=== PATIENT | female | born 1925 | race Caucasian/White ===

== ENCOUNTER 2016-04-18 09:27 | Emergency (ER) | payer OTHER, MEDICARE ==
[~2016-04-18] VITALS: Ht 162.6 cm; Wt 68.0 kg
--- NOTE | 2016-04-18 10:09 | ED DYSPNEA/ASTHMA COMPLAINT ---
History of Present Illness General Chief Complaint: Upper Respiratory Sx/Fever Stated Complaint: COUGH/ASTHMA Source: patient, family, old records Exam Limitations: no limitations Vital Signs & Intake/Output Vital Signs & Intake/Output Vital Signs Date Time Temp Pulse Resp B/P Pulse O2 O2 Flow FiO2 Ox Delivery Rate 04/18 1335 97.1 88 18 128/70 98 Room Air 04/18 1213 95 04/18 1036 97 04/18 1025 95 Room Air 04/18 0936 96.4 97 18 137/87 95 Room Air Allergies Coded Allergies: NO KNOWN ALLERGIES (04/11/11) Reconcile Medications Albuterol Sulfate 2.5 MG/3 ML (0.083 %) VIAL.NEB 1 Vial INH/ASHLEY Q4P PRN wheezing Amoxicillin 875 MG TABLET 1 TAB PO BID bronchitis Benzonatate (Tessalon Perle) 100 MG CAPSULE 1 CAP PO TID cough [Nebulizer machine] bronchospasm Prednisone 20 MG TABLET 1 TAB PO BID bronchospasm Triage Note: 89 Y/O WAS EVAL'D BY DR FISHER AND PRESCRIBED COUGH MEDICATION BUT HAS BEEN TAKING WITH NO RELIEF; HAS ALSO BEEN TAKING SPIRIVA AND PROAIR (LAST USE PROAIR THIS AM). PT STATES SHE HAS BEEN COUGHING WITH CLEAR PHLEGM. DENIES OTHER COMPLAINTS. DENIES PAIN. SPEAKING CLEARLY WITH NO RESP DISTRESS NOTED. SAT 95%. AFEBRILE. Triage Nurses Notes Reviewed? yes Onset: last month Duration: week(s):, continues in ED, waxing and waning Timing: recent history Severity: moderate Activities at Onset: rest Prior Episodes/Possible Cause: illness exposure Modifying Factors: Improves With: rest. Worsens With: movement. Associated Symptoms: cough, wheezing LMP (ages 10-50): post menopausal : No Patient currently breastfeeds: No HPI: 1 month prior to admission patient has had nonproductive cough nasal congestion episodes of wheezing. The wheezing is become progressive becoming short of breath when coughing. She denies fever chills nausea vomiting diarrhea abdominal pain chest pain headache dysuria rash bleeding. Past History Travel History Traveled to [place] past 21 day No Medical History Any Pertinent Medical History? 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 No Review of Systems Review of Systems Constitutional: Reports: no symptoms. EENTM: Reports: no symptoms. Respiratory: Reports: see HPI, cough, short of breath, wheezing. Cardiovascular: Reports: no symptoms. GI: Reports: no symptoms. Genitourinary: Reports: no symptoms. Musculoskeletal: Reports: no symptoms. Skin: Reports: no symptoms. Neurological/Psychological: Reports: no symptoms. Hematologic/Endocrine: Reports: no symptoms. Immunologic/Allergic: Reports: no symptoms. All Other Systems: Reviewed and Negative Physical Exam Physical Exam General Appearance: well developed/nourished, alert, awake, anxious, moderate distress Head: atraumatic, normal appearance Eyes: Bilateral: normal appearance, PERRL, EOMI. Ears, Nose, Throat: normal pharynx, normal ENT inspection Neck: normal inspection, supple, full range of motion, no midline tenderness Respiratory: chest non-tender, decreased breath sounds, wheezing, respiratory distress Cardiovascular: regular rate/rhythm, normal peripheral pulses, norml femoral pulses equa Peripheral Pulses: 4+ carotid (R), 4+ carotid (L) Gastrointestinal: normal bowel sounds, soft, non-tender, no organomegaly Extremities: normal inspection, normal capillary refill, normal range of motion, no edema, no ligament instability Neurologic/Psych: no motor/sensory deficits, awake, alert, oriented x 3, normal mood/affect, 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 No Severe Sepsis Present: No Septic Shock Present: No Progress Differential Diagnosis: asthma, bronchitis, COPD, pneumonia Plan of Care: Orders Procedure Date/time Status Regular Diet 04/18 L Active Diagnostic Imaging: Viewed by Me: Radiology Read. Discussed w/RAD: Radiology Read. CXR Impression: no acute abnormality Initial ED EKG: none Departure Departure Time of Disposition: 1316 Disposition: HOME OR SELF CARE Condition: Stable Clinical Impression Primary Impression: Asthma with acute exacerbation in adult Secondary Impressions: Bronchitis Referrals: NATALIA DORANTES,KRISTIN Johnson (PCP/Family) Departure Forms: Customer Survey General Discharge Information Prescriptions: Current Visit Scripts Prednisone 1 TAB PO BID #10 TAB Albuterol Sulfate 1 Vial INH/ASHLEY Q4P PRN wheezing #50 Vial Ref 5 Amoxicillin 1 TAB PO BID #20 TAB Benzonatate (Tessalon Perle) 1 CAP PO TID #21 CAP [Nebulizer machine] #1 UNIT Critical Care Note Critical Care Note Critical Care Time: non-applicable
--- NOTE | 2016-04-18 10:40 | RADIOLOGY REPORT ---
EXAMINATION: XR CHEST CLINICAL INFORMATION: Pneumonia. Cough for weeks. COMPARISON: None TECHNIQUE: 2 views of the chest were obtained. FINDINGS: The lung volumes are increased suggestive of underlying COPD. Lungs otherwise clear. There is calcification of the dorsal aorta. The cardiac silhouette is normal. The pulmonary vascularity is normal. Minimal apical pleural thickening compatible with chronic postinflammatory change. Bone and soft tissues: Unremarkable. IMPRESSION: No acute disease. Findings compatible with underlying COPD. Calcific atherosclerotic changes
[2016-04-18] MEDS ORDERED: AMOXICILLIN875 M1 PO (13:20)
[2016-04-18] MEDS ORDERED: ALBUTEROL2.5 MG/3 M INH/SOL (13:20)
[2016-04-18] MEDS ORDERED: TESSALON PERLE100 M1 PO (13:20)
[2016-04-18] MEDS ORDERED: PREDNISONE20 M1 PO (13:20)
[2016-04-18] MEDS ORDERED: Nebulizer machine (13:20)
[2016-04-18 13:35] VITALS: BP 128/70
== END 2016-04-18 13:36 ==
LOC: ERH 09:27
DX: J45.901 Unspecified asthma with (acute) exacerbation (principal); Z87.891 Personal history of nicotine dependence
CPT/HCPCS: 1263

== ENCOUNTER 2016-05-01 20:58 | Inpatient (IN) | payer OTHER, MEDICARE ==
[~2016-05-01] VITALS: Ht 162.6 cm; Wt 56.2 kg
[~2016-05-01 20:58] MED LIST: ALBUTEROL2.5 MG/3 M INH/SOL; AMOXICILLIN875 M1 PO; Nebulizer machine; PREDNISONE20 M1 PO; TESSALON PERLE100 M1 PO
--- NOTE | 2016-05-01 21:06 | NUR ---
RECEIVED 89 YO FEMALE WITH HX OF ASTHMA, C/O DIFFICULTY BREATHING, STARTED THIS AFTERNOON, WORSE WITH COUGHING. EXP WHEEZES AUSCULTATED BILAT. PT WAS HERE 1 1/2 WEEKS AGO FOR SAME. O2 SATS 96%
--- NOTE | 2016-05-01 21:06 | NUR ---
PT REPORTS CHEST HEAVINESS WITH COUGHING
--- NOTE | 2016-05-01 21:11 | NUR ---
PA STUDENT IN TO EVAL PT.
--- NOTE | 2016-05-01 21:20 | ED DYSPNEA/ASTHMA COMPLAINT ---
History of Present Illness General Chief Complaint: Wheezing/Asthma Stated Complaint: ASTHMA, COUGHING, DIFF BREATHING Source: patient, family, old records Exam Limitations: no limitations Vital Signs & Intake/Output Vital Signs & Intake/Output Vital Signs Date Time Temp Pulse Resp B/P Pulse O2 O2 Flow FiO2 Ox Delivery Rate 05/02 022 98.1 84 20 122/74 96 Nasal 2.0L Cannula 05/02 0013 88 107/62 98 Nasal 2.0L Cannula 05/02 0001 98.2 70 20 90/60 95 Nasal 2.0L Cannula 05/01 2243 114 146/91 05/01 2133 96 Nasal 2.0L Cannula 05/02 2103 98.0 99 20 149/91 95 Room Air ED Intake and Output 05/02 0000 05/01 1200 Intake Total 0 Output Total Balance 0 Intake, Oral 0 Patient 144 lb Weight Allergies Coded Allergies: NO KNOWN ALLERGIES (04/11/11) Reconcile Medications Albuterol Sulfate (Proair Hfa) 90 MCG HFA.AER.AD 2 PUF INH Q4-6 PRN PRN ASTHMA (Reported) Albuterol Sulfate 2.5 MG/3 ML (0.083 %) VIAL.NEB 1 Vial INH/ASHLEY Q4P PRN wheezing Alendronate Sodium (Fosamax) 70 MG TABLET 1 TAB PO QW OSTEOPOROSIS (Reported) in the morning, at least 30 minutes before the first food, beverage, or medication of the day Amoxicillin 875 MG TABLET 1 TAB PO BID bronchitis Atorvastatin Calcium (Lipitor) 40 MG TABLET 1 TAB PO DAILY HLD (Reported) Benzonatate (Tessalon Perle) 100 MG CAPSULE 1 CAP PO TID cough Calcium Carbonate/Vitamin D3 (Caltrate 600 + D Tablet) 600 MG-800 TABLET 2 TAB PO DAILY SUPPLEMENT (Reported) Gluc/James-MSM#1/C/Delgado/Alexey/Bor (Osteo Bi-Flex Caplet) 750 MG-644 MG-30 MG-1 MG- 1.5 MG TABLET 2 TAB PO DAILY SUPPLEMENT (Reported) Lisinopril 10 MG TABLET 1 TAB PO DAILY HTN (Reported) Multivit-Min/FA/Lycopen/Lutein (Centrum Silver Tablet) 0.4 MG-300 MCG-250 MCG TABLET 1 TAB PO DAILY SUPPLEMENT (Reported) [Nebulizer machine] bronchospasm Prednisone 20 MG TABLET 1 TAB PO BID bronchospasm Tiotropium [place] (Spiriva) 18 MCG CAP.W.DEV 1 CAP INH DAILY BREATHING ( Reported) Triage Note: RECEIVED 89 YO FEMALE WITH HX OF ASTHMA, C/O DIFFICULTY BREATHING, STARTED THIS AFTERNOON, WORSE WITH COUGHING. EXP WHEEZES AUSCULTATED BILAT. PT WAS HERE 1 1/2 WEEKS AGO FOR SAME. O2 SATS 96% Triage Nurses Notes Reviewed? yes Onset: Abrupt Duration: hour(s): Severity: moderate, severe Activities at Onset: none HPI: 89-year-old female comes into emergency room for further evaluation of chest heaviness and shortness of breath has been going on since about 5 PM tonight. Patient denies any chest pain but reports her chest feels heavy. History of asthma. Patient reports some wheezing. Denies any vomiting. Denies any prior history of cardiac issues. She has a history of hypertension cholesterol and asthma. She sees Dr. Fisher but has never seen a employee health nurse. Denies any other associated symptoms at this time. (HARITHA GLOVER) Past History Travel History Traveled to [place] past 21 day No Medical History Any Pertinent Medical History? 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 No (HARITHA GLOVER) Review of Systems Review of Systems Constitutional: Reports: no symptoms. EENTM: Reports: no symptoms. Respiratory: Reports: see HPI. Cardiovascular: Reports: see HPI. GI: Reports: no symptoms. Genitourinary: Reports: no symptoms. Musculoskeletal: Reports: no symptoms. Skin: Reports: no symptoms. Neurological/Psychological: Reports: no symptoms. Hematologic/Endocrine: Reports: no symptoms. Immunologic/Allergic: Reports: no symptoms. All Other Systems: Reviewed and Negative (HARITHA GLOVER) Physical Exam Physical Exam General Appearance: well developed/nourished, alert, moderate distress Head: atraumatic, normal appearance Eyes: Bilateral: normal appearance. Ears, Nose, Throat: normal ENT inspection, hearing grossly normal Neck: normal inspection Respiratory: decreased breath sounds, wheezing (mild all lung escobar) Cardiovascular: regular rate/rhythm Gastrointestinal: soft Extremities: normal inspection, normal range of motion Neurologic/Psych: awake, alert, oriented x 3, normal gait, normal mood/affect Skin: intact, normal color Core Measures ACS in differential dx? Yes Severe Sepsis Present: No Septic Shock Present: No (DAKOTA VAZQUEZ,HARITHA) Progress Differential Diagnosis: asthma, AMI, bronchitis, costochondritis, CHF, COPD, musculoskeletal pain, pericarditis, pulmonary embolism, pneumonia, pneumothorax, rib fracture, unstable angina, nonstemi, stemi Plan of Care: Orders Procedure Date/time Status Heart Healthy Diet 05/02 B Active TROPONIN LEVEL 05/02 1000 Active EKG 05/02 1000 Active CBC WITHOUT DIFFERENTIAL 05/02 0600 Active BASIC ELECTROLYTES PLUS BUN&CR 05/02 0600 Active TROPONIN LEVEL 05/02 0400 Active EKG 05/02 0400 Active Weight 05/01 2330 Active Pathway - chart 05/01 2325 Active Patient Data 05/01 2325 Active Code Status 05/01 2325 Active Telemetry/Manager Global 05/01 2238 Active Patient Data 05/01 223 Active Add-on Test (ER Only) 05/02 2223 Active Saline Lock 05/01 2217 Active Misc Message 05/01 2217 Active ED Holding Orders 05/01 2217 Active Admit to inpatient 05/01 221 Active Vital Signs 05/01 2217 Active Code Status 05/01 221 Complete PARTIAL THROMBOPLASTIN TIME 05/01 2134 Complete PROTHROMBIN TIME 05/01 2134 Complete LIPID PANEL 05/01 2134 Complete D-DIMER 05/01 2134 Complete Intake & Output 05/01 2121 Active TROPONIN LEVEL 05/01 2108 Complete COMPREHENSIVE METABOLIC PANEL 05/01 2108 Complete CBC WITHOUT DIFFERENTIAL 05/01 2108 Complete EKG 05/01 2106 Active TRC EVALUATION (GEN) 05/01 UNK Active INCENTIVE SPIROMETRY TRX (GEN) 05/01 UNK Active Pathway - chart 05/01 UNK Active House Staff 05/01 UNK Active Lab Add-on Test 05/01 UNK Active VTE Mechanical Prophylaxis 05/01 UNK Active Telemetry/Manager Global 05/01 UNK Active ECHOCARDIOGRAM 05/01 UNK Active Current Medications Sig/Rayna Start time Last Medication Dose Stop Time Status Admin Atorvastatin Calcium 40 MG 1700 05/02 1700 AC (Lipitor) Aspirin 81 MG DAILY 05/02 1000 AC (Aspirin) Clopidogrel Bisulfate 75 MG DAILY 05/02 1000 AC (Plavix) Lisinopril 10 MG DAILY 05/02 1000 AC (Prinivil) Methylprednisolone 40 MG Q12 05/02 1000 AC (Solumedrol) Multivitamins 1 TAB DAILY 05/02 1000 CAN (Theragran Vitamins) Tiotropium [place] 1 PUF DAILY 05/02 1000 AC (Spiriva) Nitroglycerin 0.5 GM Q6 05/02 0600 AC (Nitro-Bid) Acetaminophen 650 MG Q6P PRN 05/01 2330 AC (Tylenol) Laboratory Tests 05/01/165: Anion Gap 9, Estimated GFR 52 L, BUN/Creatinine Ratio 28.0 H, Glucose 97, Calcium 8.9, Total Bilirubin 0.3, AST 28, ALT 47, Alkaline Phosphatase 69, Troponin I 0.32 *H, Total Protein 6.3, Albumin 3.4 L, Globulin 2.9, Albumin/ Globulin Ratio 1.2, Triglycerides 117, Cholesterol 150, LDL Cholesterol, Calc 79 , HDL Cholesterol 48, Cholesterol/HDL Ratio 3, PT 10.6, INR 1.01, APTT 27, D- Dimer 918 H, CBC w Diff NO MAN DIFF REQ, RBC 3.89 L, MCV 89.8, MCH 29.2, RDW 14.6 H, MPV 7.1 L, Gran % 73.3, Lymphocytes % 12.4 L, Monocytes % 9.1, Eosinophils % 3.8, Basophils % 1.4, Absolute Granulocytes 7.7 H, Absolute Lymphocytes 1.3, Absolute Monocytes 1.0 H, Absolute Eosinophils 0.4, Absolute Basophils 0.1, PUBS MCHC 32.5 L Diagnostic Imaging: Viewed by Me: Radiology Read. Discussed w/RAD: Radiology Read. Radiology Impression: SERVICE DATE: 05/01/16 EXAM TYPE: RAD - XRY- PORTABLE CHEST XRAY EXAMINATION: XR PORTABLE CHEST CLINICAL INFORMATION: Dyspnea. COMPARISON: Chest radiograph 04/18/2016. TECHNIQUE: Portable AP view of the chest was obtained. FINDINGS: Lungs are well-expanded. There are ill-defined linear markings within the lung bases that most likely represent a manifestation of subsegmental atelectasis. There is no overt consolidative disease or effusion. No pneumothorax. The cardiac silhouette and upper mediastinal contours are unremarkable. No acute osseous finding. IMPRESSION: There are coarse linear markings within the lung bases that most likely represent a manifestation of subsegmental atelectasis. No overt consolidative disease or effusion. Initial ED EKG: normal intervals, normal p-waves, normal sinus rhythm, rate (91) , slight st depression v4,v5,v6 (HARITHA GLOVER) Departure Departure Disposition: STILL A PATIENT Condition: Stable Clinical Impression Primary Impression: Non-STEMI (non-ST elevated myocardial infarction) Referrals: KRISTIN FISHER MD (PCP/Family) Departure Forms: Customer Survey General Discharge Information Admission Note Spoke With: KRISTIN FISHER MD Documentation of Exam: Documentation of any treatments & extenuating circumstances including Concerns Regarding Discharge (functional status, medication knowledge or non-compliance, living conditions, etc.) that warrant an admission rather than observation: Spoke with Dr. Al from cardiology. IV heparin. Aspirin. Plavix. Nitroglycerin. Beta fredy is wheezing is better. Spoke with Dr. Fisher. Patient be admitted to his service. Dr. Al will consult. Telemetry at this time. (HARITHA GLOVER) PA/SURGICAL ASST Co-Sign Statement Statement: ED Attending supervision documentation- [x] I saw and evaluated the patient. I have also reviewed all the pertinent lab results and diagnostic results. I agree with the findings and the plan of care as documented in the PA's/SURGICAL ASST's documentation.... pt signed out to me. [] I have reviewed the ED Record and agree with the PA's/SURGICAL ASST's documentation. [] Additions or exceptions (if any) to the PAs/SURGICAL ASST's note and plan are summarized below: [] (KATHLEEN DORANTES,NARAYAN Gibbs) Critical Care Note Critical Care Note Critical Care Time: 30-74 min (45 min) (HARITHA GLOVER)
--- NOTE | 2016-05-01 21:22 | NUR ---
TAYLOR MG AT BEDSIDE FOR EVAL.
--- NOTE | 2016-05-01 21:41 | NUR ---
PT MEDICATED WITH 125MG SOLU MEDROL IV. RESP AT BEDSIDE.
[2016-05-01 21:44] LABS: ABSOLUTE BASOPHIL COUNT 0.1 /CUMM (0.0-0.2); ABSOLUTE EOSINOPHIL COUNT 0.4 /CUMM (0.0-0.7); ABSOLUTE GRANULOCYTE CT 7.7 /CUMM (1.4-6.5); ABSOLUTE LYMPH COUNT 1.3 /CUMM (1.2-3.4); BASOPHIL % 1.4 % (0.0-2.0); EOSINOPHIL % 3.8 % (0-5); GRANULOCYTE % 73.3 % (42.2-75.2); HEMATOCRIT 34.9 % (37-47); MEAN CORPUSCULAR HGB 29.2 PG (27.0-31.0); MEAN CORPUSCULAR HGB CONC 32.5 G/DL (33.0-37.0); MEAN CORPUSCULAR VOLUME 89.8 FL (81.0-99.0); MEAN PLATELET VOLUME 7.1 FL (7.4-10.4); PLATELET COUNT 248 /CUMM (130-400); RBC DISTRIBUTION WIDTH 14.6 % (11.5-14.5); RED BLOOD CELL CT 3.89 /CUMM (4.20-5.40); WHITE BLOOD CELL COUNT 10.5 /CUMM (4.8-10.8)
--- NOTE | 2016-05-01 21:57 | NUR ---
PORTABLE XRAY AT BEDSIDE.
--- NOTE | 2016-05-01 22:14 | NUR ---
CRITICAL TEST RESULTS [id number] SABINE POOL 89 F TESTS AND RESULTS: TROPONIN 0.32 Results received and read back by: ADELSO AVILES Results received date and time: 05/01/16 2094 The following provider was notified of the results, and read the results back: TAYLOR DUNCAN Notified date and time: 05/01/16 at 7442
--- NOTE | 2016-05-01 22:28 | NUR ---
PHARMACY CALLED FOR HEPARIN DRIP.
--- NOTE | 2016-05-01 22:37 | NUR ---
PT MEDICATED PER EMAR.
--- NOTE | 2016-05-01 22:47 | History & Physical ---
RAF REYES MD 05/01/16 0009: General Information and HPI MD Statement: I have seen and personally examined SABINE POOL and documented this H&P. The patient is a 89 year old F who presented with a patient stated chief complaint of wheezing. Source of Information: patient, old records Exam Limitations: no limitations History of Present Illness: Ms. Pool is a pleasant 89 year old female with PMH HTN, HLD, asthma, osteoporosis and basal cell carcinoma s/p excision who presents with chief complaint of difficulty breathing. Patient was recently seen in the emergency room at [place] on 04/18/16 for acute asthma exacerbation and discharged with amoxicillin and prednisone, both of which she has completed the course. Patient presents to the emergency room again today due to sudden onset shortness of breath, cough and subsequent chest discomfort that started later this afternoon. Patient was not doing anything specific when she noted she became dyspneic. This dyspnea was worsened by exertion and associated with non-productive cough and wheezing. As the day progressed, she then developed this substernal chest heaviness that gradually increased in intensity until arrival to the ED. The chest pressure did not radiate, did not occur with palpitations, and was not relieved with nitrogylcerin. Associated symptoms include dizziness/ lightheadedness whenever she coughs, non-produtive cough, audible wheezing and chest heaviness. PSH is significant for prior cesarian section and basal cell carcinoma excision. Family history reveals no history of heart disease in Sabine's family. Social history is significant for prior tobacco abuse for 10 years (quit 50 years ago). She denies alcohol or illicit drug use. She drives and performs all of her ADLs/IADLs without assistance. Her PCP is Dr. 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 Bear. Allergies/Medications Allergies: Coded Allergies: NO KNOWN ALLERGIES (04/11/11) Home Med list Albuterol Sulfate (Proair Hfa) 90 MCG HFA.AER.AD 2 PUF INH Q4-6 PRN PRN ASTHMA (Reported) Albuterol Sulfate 2.5 MG/3 ML (0.083 %) VIAL.NEB 1 Vial INH/ASHLEY Q4P PRN wheezing Alendronate Sodium (Fosamax) 70 MG TABLET 1 TAB PO QW OSTEOPOROSIS (Reported) in the morning, at least 30 minutes before the first food, beverage, or medication of the day Amoxicillin 875 MG TABLET 1 TAB PO BID bronchitis Atorvastatin Calcium (Lipitor) 40 MG TABLET 1 TAB PO DAILY HLD (Reported) Benzonatate (Tessalon Perle) 100 MG CAPSULE 1 CAP PO TID cough Calcium Carbonate/Vitamin D3 (Caltrate 600 + D Tablet) 600 MG-800 TABLET 2 TAB PO DAILY SUPPLEMENT (Reported) Gluc/James-MSM#1/C/Delgado/Alexey/Bor (Osteo Bi-Flex Caplet) 750 MG-644 MG-30 MG-1 MG- 1.5 MG TABLET 2 TAB PO DAILY SUPPLEMENT (Reported) Lisinopril 10 MG TABLET 1 TAB PO DAILY HTN (Reported) Multivit-Min/FA/Lycopen/Lutein (Centrum Silver Tablet) 0.4 MG-300 MCG-250 MCG TABLET 1 TAB PO DAILY SUPPLEMENT (Reported) [Nebulizer machine] bronchospasm Prednisone 20 MG TABLET 1 TAB PO BID bronchospasm Tiotropium [place] (Spiriva) 18 MCG CAP.W.DEV 1 CAP INH DAILY BREATHING ( Reported) Compliance With Home Meds: GOOD Past History Travel History Traveled to [place] past 21 day No Medical History Neurological: NONE EENT: NONE Cardiovascular: hypertension, HIGH CHOLESTEROL Respiratory: asthma, pneumonia Gastrointestinal: NONE Hepatic: NONE Renal: NONE Musculoskeletal: NONE Psychiatric: NONE Endocrine: NONE Blood Disorders: NONE Cancer(s): NONE REGRINDER OPERATOR/Reproductive: NONE History of CDIFF: No Tetanus Vaccine: 08/08/11 Surgical History Surgical History: non-contributory Past Family/Social History Psychosocial History Where do you live? Home Who Do You Live With? self Services at Home: None Primary Language: Chinese Smoking Status: Former Smoker ETOH Use: denies use Illicit Drug Use: denies illicit drug use Functional Ability ADLs Independent: dressing, eating, toileting, bathing. Ambulation: independent Sexual History Sexually Active No Review of Systems Review of Systems Constitutional: Denies: chills, fever, malaise, weakness. EENTM: Denies: blurred vision, visual changes, nasal congestion, throat pain. Cardiovascular: Reports: chest pain. Denies: edema, orthopena, palpitations, syncope. Respiratory: Reports: cough, short of breath, wheezing. Denies: sputum production, stridor. GI: Denies: abdominal pain, nausea, vomiting. Genitourinary: Denies: dysuria, hematuria, pain. Musculoskeletal: Denies: back pain, joint pain, neck pain. Skin: Reports: lesions (Basal cell excision on back). Neurological/Psychological: Denies: anxiety, confusion, headache. Hematologic/Endocrine: Denies: bruising, bleeding. Immunologic/Allergic: Denies: splenectomy. All Other Systems: Reviewed and Negative Exam & Diagnostic Data Last 24 Hrs of Vital Signs/I&O Vital Signs Date Time Temp Pulse Resp B/P Pulse O2 O2 Flow FiO2 Ox Delivery Rate 05/01 2242 114 146/91 05/01 2133 96 Nasal 2.0L Cannula 05/02 2103 98.0 99 20 149/91 95 Room Air Physical Exam General Appearance Alert, Oriented X3, Cooperative, No Acute Distress Skin S/P excision of basal cell on midback, excision of mole on anterior chest HEENT Atraumatic, PERRLA, EOMI, Mucous Membr. moist/pink Neck Supple, No JVD, +2 Carotid Pulse wo Bruit Lymphatic Cervical nl Cardiovascular Normal S1, Normal S2, No Murmurs, Tachycardic Lungs Normal Air Movement, Occasional wheeze, no rhales/rhonchi/rubs Abdomen Normal Bowel Sounds, Soft, No Tenderness, No Masses Neurological Normal Speech, Strength at 5/5 X4 Ext, Normal Tone Extremities No Clubbing, No Cyanosis, No Edema, No Tenderness/Swelling Vascular Pulses Symmetrical Last 24 Hrs of Labs/Finn: Laboratory Tests 05/01/162134: Anion Gap 9, Estimated GFR 52 L, BUN/Creatinine Ratio 28.0 H, Glucose 97, Calcium 8.9, Total Bilirubin 0.3, AST 28, ALT 47, Alkaline Phosphatase 69, Troponin I 0.32 *H, Total Protein 6.3, Albumin 3.4 L, Globulin 2.9, Albumin/ Globulin Ratio 1.2, PT 10.6, INR 1.01, APTT 27, D-Dimer Pending, CBC w Diff NO MAN DIFF REQ, RBC 3.89 L, MCV 89.8, MCH 29.2, RDW 14.6 H, MPV 7.1 L, Gran % 73.3, Lymphocytes % 12.4 L, Monocytes % 9.1, Eosinophils % 3.8, Basophils % 1.4 , Absolute Granulocytes 7.7 H, Absolute Lymphocytes 1.3, Absolute Monocytes 1.0 H, Absolute Eosinophils 0.4, Absolute Basophils 0.1, PUBS MCHC 32.5 L Diagnostic Data EKG Results NSR HR 91, QTC 394, T wave inversion V1-V2 CXR Results IMPRESSION: There are coarse linear markings within the lung bases that most likely represent a manifestation of subsegmental atelectasis. No overt consolidative disease or effusion. Assessment/Plan Assessment: Ms. Pool is a pleasant 89 year old female with PMH HTN, HLD, asthma, osteoporosis and basal cell carcinoma s/p excision who presents with chief complaint of difficulty breathing. Patient noted sudden onset shortness of breaht this afternoon, followed by non-productive cough, dizziness with each episode of cough and non-radiating chest heaviness not relieved with nitroglycerin. In the ED: Vital signs showed T 98.0, HR 99, RR 20, BP 149/91 and O2 saturation of 95% on room air that increased to 96% on 2 L NC. Labs were significant for normocytic anemia to 11.4/34.9, Na 133, BUN 28, troponin 0.32, INR 1.01 and DDimer pending. CXR showed coarse linear markings within lung bases likely representing manifestation of subsegmental atelectasis. No overt consolidative disease or effusion. EKG showed NSR HR 91 and QTC 394 with T wave inversion in V1-V2. Patient is admitted to the telemetry floor and the following is the management: 1. Acute asthma exacerbation * Diffuse wheezing appreciated on presentation to ED and patient responded well to 125 IV solumedrol * Unlikely infectious in nature as she is afebrile without leukocytosis and no infiltrate seen on imaging * Prior PFTs on 07/03/11 showed mild obstructive lung disease primarily of the small airways * Continue IV soluemdrol 40 mg Q12 * Spiriva 1 puf daily * Holding beta katelyn for now as it may worsen reactive airway * Incentive spirometer and TRC nebs as needed 2. Elevated troponins * Likely demand ischemia in the setting of asthma exacerbation * OC score is 3 * Patient already received SL nitro, ASA and beta katelyn, currently on IV heparin gtt and oxygen which we will continue * Hold off beta blockers for now given increased SOB possibly 2/2 dose administered in ED * Cardiology evaluation * Trend troponins/EKG at 4 am and 10 am * Nitro 0.5 gm Top Q6 * Plavix 75 mg PO daily * ASA 81 mg PO daily 3. HTN, HLD * Vital signs Q shift * Continue lisinopril 10 mg PO daily * Atorvastatin 40 mg PO daily FULL CODE DVTP: Heparin gtt Heart Healthy Diet Mild pain pathway As Ranked By This Provider Problem List: 1. Asthma 2. Chest heaviness 3. Elevated troponin 4. HTN (hypertension) 5. HLD (hyperlipidemia) 6. Osteoporosis Core Measures/Miscellaneous Acute Coronary Syndrome ACS Diagnosis: Yes KERRY/ARB For EF <40% No No KERRY/ARB d/t NO documentation of EF ASA W/I 24hr of admit Yes Beta-Katelyn W/I 24hrs Yes LDL assessed W/I 24 hrs Yes Currently on Statin Yes Cerebrovascular Accident CVA/TIA Diagnosis: No Congestive Heart Failure CHF Diagnosis: No Venous Thromboembolism VTE Risk Factors: Acute medical illness, Age > 40 No [facility] VTE prophylaxis d/t: No contraindications No VTE Pharm Prophylaxis d/t: No contraindications VTE Diagnosis: No VTE Type: NONE VTE Confirmed by (Test): NONE Severe Sepsis Severe Sepsis Present: No Septic Shock Septic Shock Present: No Miscellaneous Documentation Attending Case Discussed With: KRISTIN FISHER MD Primary Care Physician: KRISTIN FISHER MD Patient sees these Specialists Dr. Bear, dermatology Level of Patient Care: Telemetry CHINO ROBBINS MD 05/02/16 0020: Resident Review Statement Resident Statement: examined this patient, discussed with editing internship, agreed with editing internship Other Findings: 69 Y/O F with a PMH of HTN, HLD, Asthma, Skin Cancer, Osteoporosis who presents to the ED with complaints of increased shortness of breath. Reports that she started to feel short of breath all of a sudden this afternoon. This was associated with some chest pressure, which was new. Does not report any palpitation, dizziness, presyncopal symptoms. She was recently seen in the ED on 04/18 for SOB and was diagnosed with an asthma exacerbation and sent home on Prednisone an Amoxicillin. She recovered completely before today afternoon. She arrived in the ED and was given 125 solumedrol, TRC/Nebs, SL NTG. She reports her breathing became much easier, but her chest pressure did not change. Vitals: Currently on 2.0L saturating 96% Physical Exam: No wheezing heard on exam, no pedal edema, RRR, no M/R/G Labs: Trop 0.32 EKG: No ST-T wave changes Problem List: 1) Elevated Troponins 2/2 NSTEMI vs supply-demand mismatch 2) Asthma Exacerbation 3) Hypertension 4) Hyperlipidemia 5) Osteoporosis 6) H/O Basal Cell Carcinoma Plan: * Admit to telemetry * OC score of 3, putting her at a 14% r/o all cause mortality at 14 days * Trend Troponins and EKG * Aspirin, Plavix, NTG paste, IV Heparin * ECHO * Hold off on beta blockers as the patient could be having increased shortness of breath 2/2 dose administered in the ED * Continue other home medications * DVT PPX: IV heparin * Pain Pathway: Tylenol PRN * Code Status: Full Code KRISTIN FISHER MD 05/02/16 1121: Attending MD Review Statement Attending Statement Attending MD Statement: examined this patient, agreed w/resident/PA/NETSUITE DEVELOPER, discussed with family, reviewed EMR data (avail), reviewed images, amended to note Attending Assessment/Plan: Problems: -NSTEMI -Hypertension -Dyslipidemia -Asthma -Osteoporosis -Allergic rhinitis Plan: -Admit to telemetry -Serial EKG and troponin -ASA -Continue lisinopril and statin -Topical nitrates as tolerated -Metoprolol also if tolerated -TRC consultation nebs -Continue Spiriva -Cardiology consultation
--- NOTE | 2016-05-01 22:48 | RADIOLOGY REPORT ---
EXAMINATION: XR PORTABLE CHEST CLINICAL INFORMATION: Dyspnea. COMPARISON: Chest radiograph 04/18/2016. TECHNIQUE: Portable AP view of the chest was obtained. FINDINGS: Lungs are well-expanded. There are ill-defined linear markings within the lung bases that most likely represent a manifestation of subsegmental atelectasis. There is no overt consolidative disease or effusion. No pneumothorax. The cardiac silhouette and upper mediastinal contours are unremarkable. No acute osseous finding. IMPRESSION: There are coarse linear markings within the lung bases that most likely represent a manifestation of subsegmental atelectasis. No overt consolidative disease or effusion.
[2016-05-01 22:51] LABS: PT 10.6 SEC (9.4-12.5); PTT 27 SEC (25-37)
--- NOTE | 2016-05-01 22:58 | NUR ---
PT BED ASSIGNMENT 180-1
--- NOTE | 2016-05-01 23:29 | NUR ---
HEPARIN DRIP INITIATED.
--- NOTE | 2016-05-01 23:33 | NUR ---
THIS RN CALLED TELEMETRY FOR REPORT. RECEIVING NURSE WILL RETURN CALL IN 5 MINUTES.
[2016-05-01] MEDS ORDERED: LISINOPRIL10 M1 PO (23:39)
[2016-05-01] MEDS ORDERED: LIPITOR40 M1 PO (23:39)
[2016-05-01] MEDS ORDERED: SPIRIVA18 MCG INH (23:40)
[2016-05-01] MEDS ORDERED: CENTRUM FLAVOR PO (23:44)
[2016-05-01] MEDS ORDERED: CALTRATE 600 +1 EACH PO (23:44)
[2016-05-01] MEDS ORDERED: OSTEO BI-FLEX1 EAC2 PO (23:45)
--- NOTE | 2016-05-01 23:46 | NUR ---
REPORT GIVEN TO JUNI TSANG ON TELEMETRY.
[2016-05-01] MEDS ORDERED: CENTRUM SILVER1 EAC3 PO (23:47)
[2016-05-01] MEDS ORDERED: PROAIR HFA8.5 GM INH (23:50)
[2016-05-01] MEDS ORDERED: FOSAMAX70 M1 PO (23:50)
--- NOTE | 2016-05-01 23:52 | NUR ---
BEEPER 033 PAGED.
--- NOTE | 2016-05-02 00:24 | NUR ---
PER RECEIVING NURSE, HOLD OFF ON BRINGING PT UP DUE TO EMERGENCY ON FLOOR.
--- NOTE | 2016-05-02 01:02 | NUR ---
UNABLE TO BRING PT UP TO FLOOR PER CHIEF MARKETING OFFICER.
--- NOTE | 2016-05-02 01:06 | NUR ---
WILL CONTINUE TO MONITOR PT.
--- NOTE | 2016-05-02 01:27 | NUR ---
HOUSESTAFF PAGED REGARDING RESP TREATMENT. AWAITING CALL BACK.
[2016-05-02 05:34] LABS: ABSOLUTE BASOPHIL COUNT 0 /CUMM (0.0-0.2); ABSOLUTE EOSINOPHIL COUNT 0 /CUMM (0.0-0.7); ABSOLUTE GRANULOCYTE CT 9.8 /CUMM (1.4-6.5); ABSOLUTE LYMPH COUNT 0.6 /CUMM (1.2-3.4); ABSOLUTE MONOCYTE COUNT 0.1 /CUMM (0.10-0.60); BASOPHIL % 0 % (0.0-2.0); EOSINOPHIL % 0 % (0-5); GRANULOCYTE % 93.1 % (42.2-75.2); HEMATOCRIT 34.9 % (37-47); MEAN CORPUSCULAR HGB CONC 32.5 G/DL (33.0-37.0); MEAN CORPUSCULAR VOLUME 89.4 FL (81.0-99.0); MEAN PLATELET VOLUME 7.6 FL (7.4-10.4); PLATELET COUNT 248 /CUMM (130-400); RBC DISTRIBUTION WIDTH 14.5 % (11.5-14.5); WHITE BLOOD CELL COUNT 10.5 /CUMM (4.8-10.8)
[2016-05-02 05:43] LABS: PTT 95 SEC (25-37)
[2016-05-02 07:57] VITALS: BP 116/72
--- NOTE | 2016-05-02 08:38 | PN- Housestaff ---
Subjective Follow-up For: NSTEMI Asthma exacerbation Tele-Events Since Last Visit: NSR with HR 69-72 Subjective: Patient seen and examined at bedside. She denies any chest pain/discomfort or dyspnea at the time of interview this morning. Feeling well with no new complaints although she is concerned about the potential damage done to her heart. Denies any f/c, palpitations, abdominal pain, n/v/c/d, dyspepsia or jaw pain, headache, dizziness, lightheadedness. No events reported overnight. Review of Systems Constitutional: Reports: see HPI. Objective Last 24 Hrs of Vital Signs/I&O Vital Signs Date Time Temp Pulse Resp B/P Pulse O2 O2 Flow FiO2 Ox Delivery Rate 05/02 1213 95 Nasal 1.0L Cannula 05/02 1202 Nasal 2.0L Cannula 05/02 1057 97 Nasal 2.0L Cannula 05/02 0954 80 116/72 05/02 0800 97 Nasal 2.0L Cannula 05/02 0757 98.1 80 20 116/72 97 Nasal 2.0L Cannula 05/02 0230 Nasal 2.0L Cannula 05/02 0229 98.1 84 20 122/74 96 Nasal 2.0L Cannula 05/02 0013 88 107/62 98 Nasal 2.0L Cannula 05/02 0001 98.2 70 20 90/60 95 Nasal 2.0L Cannula 05/01 2243 114 146/91 05/01 2134 96 Nasal 2.0L Cannula 05/01 2104 98.0 99 20 149/91 95 Room Air Intake & Output 05/02 1600 05/02 0800 05/02 0000 Intake Total 100 0 Output Total Balance 100 0 Intake, Oral 100 0 Patient 56.245 kg 65.317 kg Weight Physical Exam General Appearance: Alert, Oriented X3, Cooperative, No Acute Distress Other Physical Findings: Skin S/P excision of basal cell on midback, excision of mole on anterior chest HEENT Atraumatic, PERRLA, EOMI, Mucous Membr. moist/pink Neck Supple, No JVD, +2 Carotid Pulse wo Bruit Lymphatic Cervical nl Cardiovascular Normal S1, Normal S2, No Murmurs, Tachycardic Lungs Normal Air Movement, Occasional wheeze, no rhales/rhonchi/rubs Abdomen Normal Bowel Sounds, Soft, No Tenderness, No Masses Neurological Normal Speech, Strength at 5/5 X4 Ext, Normal Tone Extremities No Clubbing, No Cyanosis, No Edema, No Tenderness/Swelling Vascular Pulses Symmetrical Current Medications: Current Medications Sig/Rayna Start time Last Medication Dose Route Stop Time Status Admin Acetaminophen 650 MG Q6P PRN 05/01 2330 AC PO Albuterol Sulfate 3 ML EVERY 4 HRS/AWAKE 05/02 1200 AC 05/02 INH 1054 Albuterol Sulfate 3 ML ONCE ONE 05/02 0700 DC 05/02 INH 05/02 0701 0652 Albuterol Sulfate 3 ML ONCE ONE 05/01 2130 DC 05/01 INH 05/01 2130 213 Aspirin 81 MG DAILY 05/02 1000 DC 05/02 PO 0954 Aspirin 0 .STK-MED ONE 05/01 2232 DC PO Aspirin 325 MG ONCE ONE 05/01 2230 DC 05/01 PO 05/01 2230 223 Aspirin Buffered 325 MG DAILY 05/03 1000 AC PO Aspirin Buffered 243 MG ONCE ONE 05/02 1100 DC PO 05/02 1101 Atorvastatin Calcium 40 MG 1700 05/02 1700 AC PO Clopidogrel Bisulfate 225 MG ONCE ONE 05/02 1100 DC PO 05/02 1101 Clopidogrel Bisulfate 75 MG DAILY 05/02 1000 AC 05/02 PO 0954 Clopidogrel Bisulfate 75 MG ONCE ONE 05/01 2230 DC 05/01 PO 05/01 2230 223 Heparin Sodium 0 .STK-MED ONE 05/01 2232 DC (Porcine) .ROUTE Heparin Sodium 4,000 UNIT ONCE ONE 05/01 2229 DC 05/01 (Porcine) IV 05/01 2230 223 Heparin Sodium 25,000 UNIT Q24H 05/01 2230 AC 05/01 (Porcine) IV 2325 Sodium Chloride 500 ML Ipratropium [place] 2.5 ML ONCE ONE 05/01 2129 DC 05/01 INH 05/01 Lisinopril 10 MG DAILY 05/02 1000 AC 05/02 PO 0954 Magnesium Chloride 64 MG ONCE ONE 05/02 1230 DC PO 05/02 1231 Methylprednisolone 40 MG Q12 05/02 1000 AC 05/02 IV 0954 Methylprednisolone 0 .STK-MED ONE 05/01 2140 DC .ROUTE Methylprednisolone 125 MG ONCE ONE 05/01 2129 DC 05/01 IV 05/01 Metoprolol Tartrate 0 .STK-MED ONE 05/01 2244 DC PO Metoprolol Tartrate 25 MG ONCE ONE 05/01 2229 DC 05/01 PO 05/01 2230 2243 Multivitamins 1 TAB DAILY 05/02 1000 CAN PO Nitroglycerin 0.5 GM Q6 05/02 0600 AC 05/02 TOP 0600 Nitroglycerin 0.4 MG ONCE ONE 05/01 2345 DC 05/01 SL 05/01 2345 2344 Nitroglycerin 0 .STK-MED ONE 05/01 2232 DC Nitroglycerin 0.4 MG ONCE ONE 05/01 2229 DC 05/01 SL 05/01 Tiotropium [place] 1 PUF DAILY 05/02 1000 AC 05/02 INH 0954 Last 24 Hrs of Lab/Finn Results Last 24 Hrs of Labs/Mics: Laboratory Tests 05/02/16 1205: Troponin I Pending, APTT Pending 05/02/16 1150: pH 7.43, pCO2 29 L, pO2 74 L, HCO3 19 L, ABG O2 Sat (Measured) 95.0 L, P-50 (Temp Corrected) N, Carboxyhemoglobin 0.3 L, O2 Concentration % .21, Temperature 98.1, O2 Delivery Method RA, Phlebotomy Draw Site RIGHT RADIAL 05/02/16 0440: Troponin I 2.59 *H 05/02/16 044: Anion Gap 11, Estimated GFR 52 L, BUN/Creatinine Ratio 26.0 H, Magnesium 1.8, TSH 0.189 L, Free T4 1.40, APTT 95 H, CBC w Diff NO MAN DIFF REQ, RBC 3.90 L, MCV 89.4, MCH 29.0, RDW 14.5, MPV 7.6, Gran % 93.1 H, Lymphocytes % 6.1 L, Monocytes % 0.8 L, Eosinophils % 0, Basophils % 0 L, Absolute Granulocytes 9.8 H, Absolute Lymphocytes 0.6 L, Absolute Monocytes 0.1 L, Absolute Eosinophils 0, Absolute Basophils 0, PUBS MCHC 32.5 L 05/01/162134: Anion Gap 9, Estimated GFR 52 L, BUN/Creatinine Ratio 28.0 H, Glucose 97, Calcium 8.9, Total Bilirubin 0.3, AST 28, ALT 47, Alkaline Phosphatase 69, Troponin I 0.32 *H, Total Protein 6.3, Albumin 3.4 L, Globulin 2.9, Albumin/ Globulin Ratio 1.2, Triglycerides 117, Cholesterol 150, LDL Cholesterol, Calc 79 , HDL Cholesterol 48, Cholesterol/HDL Ratio 3, PT 10.6, INR 1.01, APTT 27, D- Dimer 918 H, CBC w Diff NO MAN DIFF REQ, RBC 3.89 L, MCV 89.8, MCH 29.2, RDW 14.6 H, MPV 7.1 L, Gran % 73.3, Lymphocytes % 12.4 L, Monocytes % 9.1, Eosinophils % 3.8, Basophils % 1.4, Absolute Granulocytes 7.7 H, Absolute Lymphocytes 1.3, Absolute Monocytes 1.0 H, Absolute Eosinophils 0.4, Absolute Basophils 0.1, PUBS MCHC 32.5 L Assessment/Plan Assessment: Ms. Puente is a pleasant 89 year old female with PMH HTN, HLD, asthma, osteoporosis and basal cell carcinoma s/p excision who presents with chief complaint of difficulty breathing. Patient noted sudden onset shortness of breaht this afternoon, followed by non-productive cough, dizziness with each episode of cough and non-radiating chest heaviness not relieved with nitroglycerin. 1. Acute asthma exacerbation Diffuse wheezing appreciated on presentation to ED and patient responded well to 125 IV solumedrol. Unlikely infectious in nature as she is afebrile without leukocytosis and no infiltrate seen on imaging. Prior PFTs on 07/03/11 showed mild obstructive lung disease primarily of the small airways. Currently satting well on 1L oxgyen via NC. * Continue IV soluemdrol 40 mg Q12 * Spiriva 1 puf daily * Holding beta fredy for now as it may worsen reactive airway * Incentive spirometer and TRC nebs as needed * Oxygen support to maintain O2 sat > 92% * Check TFTs 2. NSTEMI Chest discomfort and dyspnea are most likely 2/2 NSTEMI consistent with the elevated troponin. However, PE should be included in the ddx and excluded with appropriate workup. OC risk score is 4 pts, equivalent to 20% risk all cause mortality. * Serial troponins and EKGs: 0.32 -> 2.59 -> pending * Cont heparin drip, Plavix 75mg daily, Nitro top 1 gm Q6 * Start Aspirin 325mg daily * Follow TTE * Follow up cardiology consult * Oxygen support * Hold off beta blockers for now given increased SOB possibly 2/2 dose administered in ED 3. HTN, HLD * Vital per protocol * Continue lisinopril 10 mg PO daily * Cont atorvastatin 40 mg PO daily # Heart healthy # Mild pain pathway # DVTP: Heparin gtt # Full code Problem List: 1. Asthma with acute exacerbation in adult 2. Bronchitis 3. Asthma 4. Chest heaviness 5. Elevated troponin 6. HTN (hypertension) 7. HLD (hyperlipidemia) 8. Osteoporosis 9. Non-STEMI (non-ST elevated myocardial infarction) Pain Ratin Pain Location: 0 Pain Goal: Remain pain free Pain Plan: Mild pain pathway NGT Tomorrow's Labs & Rationales: BEP
--- NOTE | 2016-05-02 08:49 | Cons- Cardiology ---
General Information and HPI Consulting Request Date of Consult: 05/02/16 Requested By: NATALIA DORANTES,KRISTIN Johnson History of Present Illness: Ms. Puente is an 89 year old female with history of hypertension, dyslipidemia and asthma who presented to the ER for evaluation of both shortness of breath and chest discomfort. It should be noted that this patient is a poor historian with decreased memory. She reports intermittent chest heaviness without radiation for about a week. She also reports a nonproductive cough and shortness of breath with wheezing. The patient does feel a bit lightheaded when she coughs but denies palpitations. No nausea, vomiting or diaphoresis. She now feels improved although her cardiac enzymes are positive for a NSTEMI. It should be noted that this patient was recently in the ER for an acute asthma exacerbation that was treated with steroids and antibiotics. Allergies/Medications Allergies: Coded Allergies: NO KNOWN ALLERGIES (04/11/11) Home Med List: Albuterol Sulfate (Proair Hfa) 90 MCG HFA.AER.AD 2 PUF INH Q4-6 PRN PRN ASTHMA (Reported) Albuterol Sulfate 2.5 MG/3 ML (0.083 %) VIAL.NEB 1 Vial INH/ASHLEY Q4P PRN wheezing Alendronate Sodium (Fosamax) 70 MG TABLET 1 TAB PO QW OSTEOPOROSIS (Reported) in the morning, at least 30 minutes before the first food, beverage, or medication of the day Amoxicillin 875 MG TABLET 1 TAB PO BID bronchitis Atorvastatin Calcium (Lipitor) 40 MG TABLET 1 TAB PO DAILY HLD (Reported) Benzonatate (Tessalon Perle) 100 MG CAPSULE 1 CAP PO TID cough Calcium Carbonate/Vitamin D3 (Caltrate 600 + D Tablet) 600 MG-800 TABLET 2 TAB PO DAILY SUPPLEMENT (Reported) Gluc/James-MSM#1/C/Delgado/Alexey/Bor (Osteo Bi-Flex Caplet) 750 MG-644 MG-30 MG-1 MG- 1.5 MG TABLET 2 TAB PO DAILY SUPPLEMENT (Reported) Lisinopril 10 MG TABLET 1 TAB PO DAILY HTN (Reported) Multivit-Min/FA/Lycopen/Lutein (Centrum Silver Tablet) 0.4 MG-300 MCG-250 MCG TABLET 1 TAB PO DAILY SUPPLEMENT (Reported) [Nebulizer machine] bronchospasm Prednisone 20 MG TABLET 1 TAB PO BID bronchospasm Tiotropium [place] (Spiriva) 18 MCG CAP.W.DEV 1 CAP INH DAILY BREATHING ( Reported) Review of Systems Review of Systems: cough Past History Travel History Traveled to [place] past 21 day No Medical History Neurological: NONE EENT: NONE Cardiovascular: hypertension, HIGH CHOLESTEROL Respiratory: asthma, pneumonia Gastrointestinal: NONE Hepatic: NONE Renal: NONE Musculoskeletal: NONE Psychiatric: NONE Endocrine: NONE Blood Disorders: NONE Cancer(s): basal cell carcinoma (s/p resection) 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 Home Who Do You Live With? self Services at Home: None Primary Language: Bhutanese Smoking Status: Former Smoker (quit 50 yrs ago) ETOH Use: denies use Illicit Drug Use: denies illicit drug use Functional Ability ADLs Independent: dressing, eating, toileting, bathing. Ambulation: independent Exam & Diagnostic Data Vital Signs and I&O Vital Signs Date Time Temp Pulse Resp B/P Pulse O2 O2 Flow FiO2 Ox Delivery Rate 05/02 0757 98.1 80 20 116/72 97 Nasal 2.0L Cannula 05/02 0230 Nasal 2.0L Cannula 05/02 0229 98.1 84 20 122/74 96 Nasal 2.0L Cannula 05/02 0013 88 107/62 98 Nasal 2.0L Cannula 05/02 0001 98.2 70 20 90/60 95 Nasal 2.0L Cannula 05/01 2243 114 146/91 05/014 96 Nasal 2.0L Cannula 05/014 98.0 99 20 149/91 95 Room Air Intake & Output 05/02 1600 05/02 0800 05/02 0000 05/01 1600 05/01 0800 05/01 0000 Intake Total 0 Output Total Balance 0 Intake, Oral 0 Patient 124 lb 144 lb Weight Physical Exam: General: WD/ WN female in NAD; alert and oriented with decreased memory HEENT: NC/ AT, PERRL, EOMI Neck: no JVD, no carotid bruit Heart: RRR with 2/6 systolic murmur Lungs: clear bilaterally Abdomen: soft, NT, +ve bowel sounds Extremities: no edema Diagnostic Data EKG Results sinus rhythm Assessment/Plan Assessment/Plan * This patient has noted recurrent episodes of chest heaviness along with shortness of breath that she has been attributing to a cough. She is also noted to have an elevated D-dimer. As such a PE is in the differential. Her symptoms and rise in cardiac enzymes are more consistent with myocardial ischemia and NSTEMI however. It is reasonable to try medical therapy considering her age and comorbidities. I would have a low threshold for cardiac catheterization, however , if this patient continues to have symtoms with rising enzymes. * Obtain an ABG on RA and lower extremity dopplers. If abnormal then a CT angiogram to assess for a PE is recommended. * Follow cardiac enzymes until they peak and obtain an echocardiogram. * check a TSH and free T4. * Begin IV heparin, aspirin 235mg daily and Plavix 75mg after a 300mg loading dose. * Begin NTG paste 1/2 inche Q6 hours, Atorvastatin 40mg daily and O2 2L by NC. * Hold Metoprolol due to recent wheezing. Consult Acknowledgment - Thank you for your consult request.
--- NOTE | 2016-05-02 10:08 | NUR ---
PATIENT WAS BLADDER SCANNED BEFORE BREAKFAST AND AVERAGE URINE WAS > 500CC. PATIENT THEN VOIDED 700CC AFTER BREAKFAST. RESIDUAL URINE ON BLADDER SCAN WAS BETWEEN 250-300CC. REPORTED TO DR. CULP.
--- NOTE | 2016-05-02 11:21 | Admission Certification ---
Admission Certification Certification Statement - As attending physician, I certify that at the time of - admission, based on clinical presentation, severity of - symptoms, need for further diagnostic testing and - therapeutic interventions, and risk of adverse outcomes - without in-hospital treatment, in my clinical assessment, - this patient requires an acute hospital stay for a minimum - of two nights or longer. I have also considered psychsocial - factors such as support system, advanced age, financial - issues, cognitive issues, and failed out-patient treatments, - past re-admission history, safety of patient, and lack of - compliance as applicable. Specific rationale supporting this admission is: Evaluation and treatment of an NSTEMI
--- NOTE | 2016-05-02 11:35 | PN- Att Addend ---
Attending Addendum Attending Brief Note Mrs. Puente was interviewed and examined. Her EMR was reviewed. She is comfortable and denies chest pain, shortness of breath, and wheezing. She is afebrile with stable vital signs. Pulmonary exam is benign. Cardiovascular exam reveals a regular rate and rhythm and is without murmurs or gallops. Abdominal exam is benign. Her extremities have good pedal pulses and are without edema. CBC in BMP are acceptable. Her troponin has risen to 2.59 a third evaluation pending. CTA and echocardiogram are pending. As suggested by Dr. Al we should continue to monitor her troponin and obtained an echo. I also agree that medical management is appropriate unless she continues to be symptomatic. At this time I feel it is safe to add metoprolol 12.5 mg twice a day. We should continue her KERRY, statin, and her pulmonary meds. She is tolerating topical nitrates which should be continued and we should also continue her antiplatelet regimen with clopidogrel and ASA.
[2016-05-02 13:05] LABS: PTT 75 SEC (25-37)
--- NOTE | 2016-05-02 15:00 | CT SCAN REPORT ---
EXAMINATION: CT ANGIOGRAM CHEST WITH AND WITHOUT CONTRAST (FOR PULMONARY EMBOLISM) CLINICAL INFORMATION: Shortness of breath, chest pain, abnormal ABG. COMPARISON: Chest radiograph done on 05/01/2016. TECHNIQUE: Prior to contrast administration, noncontrast localization images were obtained. Subsequently, multidetector volumetric imaging was performed from the thoracic inlet to below the diaphragms following the administration of 64 mL Optiray 320 intravenous contrast. No contrast reaction reported. Sagittal, coronal, and MIP oblique sagittal reformatted images were obtained on the CT workstation, uploaded to PACS, and reviewed. DLP: 390.83 mGy-cm. FINDINGS: QUALITY OF STUDY/CONTRAST BOLUS: Satisfactory. PULMONARY ARTERIES: No central or segmental pulmonary emboli. THORACIC AORTA: Diffuse atherosclerotic changes are noted within the aorta and its branches including coronary artery calcifications. There is no evidence of any dissection or aneurysm formation identified. LUNG: Pleural parenchymal scar related changes are noted at both lung apices. Mild emphysematous changes are noted throughout both lung escobar with slight pleural parenchymal scar at medial segment of the right middle lobe and lingular segment of the left upper lobe. The tracheobronchial tree appears patent. PLEURA: No pleural effusion or pneumothorax. MEDIASTINUM: Normal heart size. No pericardial effusion. No hilar or mediastinal lymphadenopathy. No evidence of septal bowing or right heart strain. CHEST WALL/AXILLA: No axillary or internal mammary lymphadenopathy. ADDITIONAL FINDINGS: The thyroid gland appears abnormal with evidence of multiple hypodense nodules, the largest seen within the left lobe, measures approximately 1.4 cm at its maximum dimension. Note is also made of inferior intrathyroidal extension into the anterior superior mediastinum with multiple calcified nodules. Followup thyroid ultrasound may be considered for further full-detail evaluation, if clinically appropriate. UPPER ABDOMEN: 3 cm cyst is noted at the superior lateral cortex of the visualized part of the superior pole of the left kidney. No reflux of contrast into the hepatic veins to suggest elevated right heart pressures. OSSEOUS STRUCTURES: No acute or suspicious osseous abnormality. IMPRESSION: 1. No CT evidence of pulmonary embolism. 2. Mild emphysematous changes are noted throughout both lung escobar with evidence of superimposed pleural parenchymal likely scar at both lung apices, medial segment of the right middle lobe and lingular segment of the left upper lobe. 3. Abnormal thyroid gland showing evidence of superior mediastinal extension and superimposed multiple calcified as well as noncalcified nodules seen bilaterally. Followup thyroid ultrasound may be considered for further full-detail evaluation, if clinically appropriate.
--- NOTE | 2016-05-02 16:07 | ULTRASOUND REPORT ---
EXAMINATION: US TRIPLEX LOWER EXTREMITY, BILATERAL CLINICAL INFORMATION: Shortness of breath with elevated d-dimer and leg tenderness COMPARISON: None TECHNIQUE: Color-flow triplex imaging with spectral analysis and compression Doppler were performed on the bilateral lower extremities. FINDINGS: Respiratory variation, normal compression and augmented flow are noted throughout the bilateral lower extremities. The visualized common femoral vein, superficial femoral vein, profunda femoral vein, popliteal vein and midcalf peroneal and posterior tibial venous segments show no evidence of deep venous thrombosis. There is no Venegas's cyst. IMPRESSION: Normal triplex scan without evidence of deep venous thrombosis involving the bilateral lower extremities.
[2016-05-02 16:31] VITALS: BP 128/72
[2016-05-02 23:54] VITALS: BP 112/80
[2016-05-03 01:02] LABS: PTT 64 SEC (25-37)
--- NOTE | 2016-05-03 06:30 | PN- Housestaff ---
See Addendum Subjective Follow-up For: NSTEMI Asthma exacerbation Tele-Events Since Last Visit: NSR Subjective: Patient seen and examined at bedside. Offers no complaints this morning. She reports feeling perfectly fine without any chest pain/discomfort or dyspnea. Denies any f/c, palpitations, abdominal pain, n/v/c/d, dyspepsia or jaw pain, headache, dizziness, lightheadedness. No events reported overnight. Review of Systems Constitutional: Reports: see HPI. Objective Last 24 Hrs of Vital Signs/I&O Vital Signs Date Time Temp Pulse Resp B/P Pulse O2 O2 Flow FiO2 Ox Delivery Rate 05/03 0855 120/62 05/03 0815 98.1 84 20 120/62 96 Nasal 1.0L Cannula 05/03 0804 96 Nasal 1.0L Cannula 05/03 0800 95 Nasal 1.0L Cannula 05/03 0000 Nasal 1.0L Cannula 05/02 2354 97.4 78 20 112/80 97 Nasal Cannula 05/02 1820 98 Nasal 2.0L Cannula 05/02 1631 97.3 79 20 128/72 98 Room Air 05/02 1600 96 Nasal 2.0L Cannula 05/02 1213 95 Nasal 1.0L Cannula 05/02 1202 Nasal 2.0L Cannula Intake & Output 05/03 1600 05/03 0800 05/03 0000 Intake Total 168 355 Output Total Balance 168 355 Intake, IV 118 115 Intake, Oral 50 240 Physical Exam General Appearance: Alert, Oriented X3, Cooperative, No Acute Distress Other Physical Findings: Skin S/P excision of basal cell on midback, excision of mole on anterior chest HEENT Atraumatic, PERRLA, EOMI, Mucous Membr. moist/pink Neck Supple, No JVD, +2 Carotid Pulse wo Bruit Lymphatic Cervical nl Cardiovascular Normal S1, Normal S2, No Murmurs, Tachycardic Lungs Normal Air Movement, Occasional wheeze, no rhales/rhonchi/rubs Abdomen Normal Bowel Sounds, Soft, No Tenderness, No Masses Neurological Normal Speech, Strength at 5/5 X4 Ext, Normal Tone Extremities No Clubbing, No Cyanosis, No Edema, No Tenderness/Swelling Vascular Pulses Symmetrical Current Medications: Current Medications Sig/Rayna Start time Last Medication Dose Route Stop Time Status Admin Acetaminophen 650 MG Q6P PRN 05/01 2330 AC PO Albuterol Sulfate 3 ML EVERY 4 HRS/AWAKE 05/02 1200 AC 05/03 INH 0801 Aspirin Buffered 325 MG DAILY 05/03 1000 AC 05/03 PO 0856 Atorvastatin Calcium 40 MG 1700 05/02 1700 AC 05/02 PO 1618 Clopidogrel Bisulfate 75 MG DAILY 05/02 1000 AC 05/03 PO 0856 Heparin Sodium 25,000 UNIT Q24H 05/01 2230 AC 05/02 (Porcine) IV 2038 Sodium Chloride 500 ML Lisinopril 10 MG DAILY 05/02 1000 AC 05/03 PO 0855 Magnesium Chloride 64 MG ONCE ONE 05/02 1230 DC 05/02 PO 05/02 1231 1618 Methylprednisolone 40 MG Q12 05/02 1000 AC 05/03 IV 0855 Nitroglycerin 0.5 GM Q6 05/02 0600 AC 05/03 TOP 0533 Patient Medication 1 ED .STK-MED ONE 05/03 1133 DC Teaching ED 05/03 1134 Tiotropium [place] 1 PUF DAILY 05/02 1000 AC 05/03 INH 0856 Last 24 Hrs of Lab/Finn Results Last 24 Hrs of Labs/Mics: Laboratory Tests 05/03/16 0635: Troponin I Cancelled 05/03/16 0635: Anion Gap 7, Estimated GFR 59 L, BUN/Creatinine Ratio 33.3 H, Magnesium 2.3, Troponin I 3.07 *H, CBC w Diff NO MAN DIFF REQ, RBC 3.48 L, MCV 89.7, MCH 29.6, RDW 14.3, MPV 7.8, Gran % 90.0 H, Lymphocytes % 6.2 L, Monocytes % 3.8, Eosinophils % 0, Basophils % 0 L, Absolute Granulocytes 9.7 H, Absolute Lymphocytes 0.7 L, Absolute Monocytes 0.4, Absolute Eosinophils 0, Absolute Basophils 0, PUBS MCHC 33.0 05/03/16 0035: Troponin I 3.58 *H, APTT 64 H 05/02/16 1825: Troponin I 3.65 *H 05/02/16 1205: Troponin I 2.48 *H, APTT 75 H 05/02/16 1150: pH 7.43, pCO2 29 L, pO2 74 L, HCO3 19 L, ABG O2 Sat (Measured) 95.0 L, P-50 (Temp Corrected) N, Carboxyhemoglobin 0.3 L, O2 Concentration % .21, Temperature 98.1, O2 Delivery Method RA, Phlebotomy Draw Site RIGHT RADIAL Assessment/Plan Assessment: Ms. Puente is a pleasant 89 year old female with PMH HTN, HLD, asthma, osteoporosis and basal cell carcinoma s/p excision who presents with chief complaint of difficulty breathing. Patient noted sudden onset shortness of breaht this afternoon, followed by non-productive cough, dizziness with each episode of cough and non-radiating chest heaviness not relieved with nitroglycerin. 1. Acute asthma exacerbation Diffuse wheezing appreciated on presentation to ED and patient responded well to 125 IV solumedrol. Unlikely infectious in nature as she is afebrile without leukocytosis and no infiltrate seen on imaging. Prior PFTs on 07/03/11 showed mild obstructive lung disease primarily of the small airways. Currently satting well on 1L oxgyen via NC. * Continue IV soluemdrol 40 mg Q12 * Spiriva 1 puf daily * Resume beta fredy if okay with cardio * Incentive spirometer and TRC nebs as needed * Oxygen support to maintain O2 sat > 92% * Check TFTs - TSH 0.189, T4 normal 2. NSTEMI Chest discomfort and dyspnea are most likely 2/2 NSTEMI consistent with the elevated troponin. However, PE should be included in the ddx and excluded with appropriate workup. OC risk score is 4 pts, equivalent to 20% risk all cause mortality. * Serial troponins and EKGs: 0.32 -> 2.59 -> 2.48 -> 3.65 -> 3.58 -> 3.07 * Cont heparin drip, Plavix 75mg daily, Nitro top 1 gm Q6 * Cont Aspirin 325mg daily * Follow TTE * Appreciate cardio recs * Oxygen support * Hold off beta blockers for now given increased SOB possibly 2/2 dose administered in ED 3. HTN, HLD * Vital per protocol * Continue lisinopril 10 mg PO daily * Cont atorvastatin 40 mg PO daily # Heart healthy # Mild pain pathway # DVTP: Heparin gtt # Full code Problem List: 1. Asthma with acute exacerbation in adult 2. Bronchitis 3. Asthma 4. Chest heaviness 5. Elevated troponin 6. HTN (hypertension) 7. HLD (hyperlipidemia) 8. Osteoporosis 9. Non-STEMI (non-ST elevated myocardial infarction) Pain Ratin Pain Location: 0 Pain Goal: Remain pain free Pain Plan: Mild pathway Tomorrow's Labs & Rationales: CBC BEP
[2016-05-03 08:07] LABS: ABSOLUTE BASOPHIL COUNT 0 /CUMM (0.0-0.2); ABSOLUTE EOSINOPHIL COUNT 0 /CUMM (0.0-0.7); ABSOLUTE GRANULOCYTE CT 9.7 /CUMM (1.4-6.5); ABSOLUTE LYMPH COUNT 0.7 /CUMM (1.2-3.4); ABSOLUTE MONOCYTE COUNT 0.4 /CUMM (0.10-0.60); BASOPHIL % 0 % (0.0-2.0); EOSINOPHIL % 0 % (0-5); HEMATOCRIT 31.2 % (37-47); MEAN CORPUSCULAR HGB 29.6 PG (27.0-31.0); MEAN CORPUSCULAR VOLUME 89.7 FL (81.0-99.0); MEAN PLATELET VOLUME 7.8 FL (7.4-10.4); PLATELET COUNT 242 /CUMM (130-400); RBC DISTRIBUTION WIDTH 14.3 % (11.5-14.5); RED BLOOD CELL CT 3.48 /CUMM (4.20-5.40)
[2016-05-03 08:15] VITALS: BP 120/62
[2016-05-03 09:22] LABS: WHITE BLOOD CELL COUNT 10.8 /CUMM (4.8-10.8)
[2016-05-03 14:24] LABS: PTT 51 SEC (25-37)
[2016-05-03 16:07] VITALS: BP 114/64
--- NOTE | 2016-05-03 18:35 | ECHOCARDIOGRAM REPORT ---
SABINE POOL Age: 89 : 1925 Gender: F Exam Date: 05/02/2016 18:59 Exam Location: [address] Ht (in): 64 Wt (lb): 123 BSA: 1.59 BP: 116 / 72 Ordering Physician: CHINO ROBBINS MD Referring Physician: Steve Al MD, PhD Technologist: Suzi Mendoza [facility] Room Number: [id number] Indications: CHEST PAIN Rhythm: Sinus Technical Quality: technically limited FINDINGS Left Ventricle Normal left ventricular size, wall thickness and systolic function with moderate posterior wall hypokinesis. Diastolic filling pattern is consistent with impaired LV relaxation. The ejection fraction is visually estimated at 70%. Right Ventricle The right ventricle is normal in size and function. Right Atrium The right atrium is normal in size. Left Atrium The left atrium is normal in size. The interatrial septum is intact. Mitral Valve The mitral valve is normal in structure and function. There is no mitral regurgitation. Aortic Valve Structurally normal aortic valve without significant sclerosis or stenosis. There is no aortic regurgitation. Tricuspid Valve The tricuspid valve is normal in structure and function. There is trace tricuspid regurgitation. Pulmonary artery systolic pressure is normal. Pulmonic Valve Structurally normal pulmonic valve. There is no pulmonic regurgitation. Pericardium Normal pericardium without effusion. No pleural effusion. Great Vessels Normal aortic root dimension. The aortic arch and great vessels are well seen and are normal. CONCLUSIONS 1. Normal EF of 70% with moderate posterior wall hypokinesis and impaired LV relaxation. 2. Trace tricuspid regurgitation. Steve Al M.D. (Electronically Signed) Final Date: 03 May 2016 18:34 MEASUREMENTS (Male / Female) Normal Values 2D ECHO LV Diastolic Diameter PLAX 4.5 cm 4.2 - 5.9 / 3.9 - 5.3 cm LV Systolic Diameter PLAX 2.5 cm 2.1 - 4.0 cm LV Fractional Shortening PLAX 44.4 % 25 - 46 % LV Ejection Fraction 2D Teich 75.9 % IVS Diastolic Thickness 0.7 cm LVPW Diastolic Thickness 0.9 cm LV Relative Wall Thickness 0.4 RV Internal Dim ED PLAX 2.7 cm 1.9 - 3.8 cm LVOT Diameter 1.9 cm Aortic Root Diameter 2.8 cm LA Systolic Diameter LX 3.0 cm 3.0 - 4.0 / 2.7 - 3.8 cm LA Volume 21.0 cm 18 - 58 / 22 - 52 cm Ascending Aorta Diameter 3.1 cm DOPPLER AV Peak Velocity 132.0 cm/s AV Peak Gradient 7.0 mmHg AV Mean Velocity 91.7 cm/s AV Mean Gradient 4.0 mmHg AV Velocity Time Integral 27.1 cm LVOT Peak Velocity 116.0 cm/s LVOT Peak Gradient 5.4 mmHg LVOT Mean Velocity 73.1 cm/s LVOT Mean Gradient 3.0 mmHg LVOT Velocity Time Integral 24.7 cm LVOT Stroke Volume 70.0 cm AV Area Cont Eq vti 2.6 cm AV Area Cont Eq pk 2.5 cm MV Peak Velocity 116.0 cm/s MV Peak Gradient 5.4 mmHg MV Mean Velocity 69.2 cm/s MV Mean Gradient 2.0 mmHg Mitral E Point Velocity 59.2 cm/s Mitral A Point Velocity 86.9 cm/s Mitral E to A Ratio 0.7 MV PHT Velocity 109.0 cm/s MV Deceleration [place] 483.0 cm/s MV Pressure Half Time 67.7 ms MV Area PHT 3.2 cm MV Deceleration Time 359.0 ms TR Peak Velocity 246.0 cm/s TR Peak Gradient 24.2 mmHg Right Atrial Pressure 5.0 mmHg Pulmonary Artery Systolic Pressu 29.2 mmHg Right Ventricular Systolic Press 29.2 mmHg PV Peak Velocity 88.8 cm/s PV Peak Gradient 3.2 mmHg PV Mean Velocity 58.5 cm/s PV Mean Gradient 2.0 mmHg PV Velocity Time Integral 16.6 cm LV E' Lateral Velocity 8.8 cm/s Mitral E to LV E' Lateral Ratio 6.8 LV E' Septal Velocity 8.0 cm/s Mitral E to LV E' Septal Ratio 7.4
--- NOTE | 2016-05-03 19:51 | PN- Cardiology ---
Subjective Subjective: * No chest discomfort, shortness of breath, lightheadedness or palpitations. * cardiac enzymes are trending down * No evidence for PE Objective Vital Signs and I&Os Vital Signs Date Time Temp Pulse Resp B/P Pulse O2 O2 Flow FiO2 Ox Delivery Rate 05/03 1607 98.0 90 20 114/64 95 Room Air 05/03 1600 95 Room Air Room Air 05/03 1600 95 Room Air 05/03 0855 120/62 05/03 0815 98.1 84 20 120/62 96 Nasal 1.0L Cannula 05/03 0804 96 Nasal 1.0L Cannula 05/03 0800 95 Nasal 1.0L Cannula 05/03 0000 Nasal 1.0L Cannula 05/02 2354 97.4 78 20 112/80 97 Nasal Cannula Intake & Output 05/03 1600 05/03 0800 05/03 0000 05/02 1600 05/02 0800 05/02 0000 Intake Total 168 355 530 100 0 Output Total Balance 168 355 530 100 0 Intake, IV 118 115 130 Intake, Oral 50 240 400 100 0 Patient 124 lb 144 lb Weight Physical Exam: General: WD/ WN female in NAD; alert and oriented with decreased memory Neck: no JVD, no carotid bruit Heart: RRR with 2/6 systolic murmur Lungs: clear bilaterally Extremities: no edema Assessment/Plan Assessment/Plan * This patient has noted recurrent episodes of chest heaviness along with shortness of breath that she has been attributing to a cough. At the present time she denies any symptoms but may be an unreliable historian. Her symptoms and rise in cardiac enzymes are consistent with myocardial ischemia and NSTEMI. It is reasonable to try medical therapy considering her age and comorbidities. I would have a low threshold for cardiac catheterization, however, if this patient continues to have symtoms with rising enzymes. * Continue IV heparin for another day, aspirin 235mg daily and Plavix 75mg daily * Change to a NTG patch at 0.4mg/hr for 12 hours daily. Continue Atorvastatin 40mg daily and O2 2L by NC. * Begin a small dose of Metoprolol at 12.5mg BID. Continue telemetry? Yes
[2016-05-03 21:54] LABS: PTT 60 SEC (25-37)
[2016-05-03 23:21] VITALS: BP 106/50
[2016-05-04 05:09] LABS: PTT 109 SEC (25-37)
--- NOTE | 2016-05-04 06:36 | PN- Housestaff ---
See Addendum Subjective Follow-up For: NSTEMI Asthma exacerbation Tele-Events Since Last Visit: NSR Subjective: Patient seen and examined at bedside. She denies any chest pain/discomfort or dyspnea at the time of interview this morning. Feeling well with no new complaints although she is concerned about the potential damage done to her heart. Denies any f/c, palpitations, abdominal pain, n/v/c/d, dyspepsia or jaw pain, headache, dizziness, lightheadedness. No events reported overnight. Review of Systems Constitutional: Reports: see HPI. Objective Last 24 Hrs of Vital Signs/I&O Vital Signs Date Time Temp Pulse Resp B/P Pulse O2 O2 Flow FiO2 Ox Delivery Rate 05/04 0833 98.5 94 16 150/75 96 Room Air 05/04 0741 97 Room Air Room Air 05/04 0211 87 106/50 05/04 0000 97 05/03 2321 98.1 87 20 106/50 95 Room Air 05/03 1607 98.0 90 20 114/64 95 Room Air 05/03 1600 95 Room Air Room Air 05/03 1600 95 Room Air 05/03 0855 120/62 Intake & Output 05/04 1600 05/04 0800 05/04 0000 Intake Total 588 480 Output Total Balance 588 480 Intake, IV 108 Intake, Oral 480 480 Physical Exam General Appearance: Alert, Oriented X3, Cooperative, No Acute Distress Other Physical Findings: Skin S/P excision of basal cell on midback, excision of mole on anterior chest HEENT Atraumatic, PERRLA, EOMI, Mucous Membr. moist/pink Neck Supple, No JVD, +2 Carotid Pulse wo Bruit Lymphatic Cervical nl Cardiovascular Normal S1, Normal S2, No Murmurs, Tachycardic Lungs Normal Air Movement, Occasional wheeze, no rhales/rhonchi/rubs Abdomen Normal Bowel Sounds, Soft, No Tenderness, No Masses Neurological Normal Speech, Strength at 5/5 X4 Ext, Normal Tone Extremities No Clubbing, No Cyanosis, No Edema, No Tenderness/Swelling Vascular Pulses Symmetrical Current Medications: Current Medications Sig/Rayna Start time Last Medication Dose Route Stop Time Status Admin Acetaminophen 650 MG Q6P PRN 05/01 2330 AC PO Albuterol Sulfate 3 ML EVERY 4 HRS/AWAKE 05/02 1200 AC 05/04 INH 0738 Aspirin Buffered 325 MG DAILY 05/03 1000 AC 05/03 PO 0856 Atorvastatin Calcium 40 MG 1700 05/02 1700 AC 05/03 PO 1632 Clopidogrel Bisulfate 75 MG DAILY 05/02 1000 AC 05/03 PO 0856 Heparin Sodium 1,687 UNIT ONCE ONE 05/03 2215 DC 05/03 (Porcine) IV 05/03 221 2215 Heparin Sodium 5,000 UNIT .STK-MED ONE 05/03 2213 DC (Porcine) IV 05/03 2214 Heparin Sodium 25,000 UNIT Q24H 05/01 2230 AC 05/02 (Porcine) IV 2038 Sodium Chloride 500 ML Lisinopril 10 MG DAILY 05/02 1000 AC 05/03 PO 0855 Methylprednisolone 40 MG Q12 05/02 1000 AC 05/03 IV 2100 Metoprolol Tartrate 12.5 MG BID 05/04 0104 AC PO Nitroglycerin 0.4 MG DAILY 05/04 0115 AC 05/04 TOP 0211 Nitroglycerin 0.5 GM Q6 05/02 0600 DC 05/03 TOP 1632 Patient Medication 1 ED .STK-MED ONE 05/03 1133 DC Teaching ED 05/03 1134 Tiotropium [place] 1 PUF DAILY 05/02 1000 AC 05/03 INH 0856 Last 24 Hrs of Lab/Finn Results Last 24 Hrs of Labs/Mics: Laboratory Tests 05/04/16 0630: Anion Gap 8, Estimated GFR 59 L, BUN/Creatinine Ratio 30.0 H, Magnesium 2.4 H , CBC w Diff Pending, WBC Pending, RBC Pending, Hgb Pending, Hct Pending, MCV Pending, MCH Pending, RDW Pending, Plt Count Pending, MPV Pending, Gran % Pending, Lymphocytes % Pending, Monocytes % Pending, Eosinophils % Pending, Basophils % Pending, Absolute Granulocytes Pending, Absolute Lymphocytes Pending , Absolute Monocytes Pending, Absolute Eosinophils Pending, Absolute Basophils Pending, PUBS MCHC Pending 05/04/16 0415: APTT 109 *H 05/03/16 2045: APTT 60 H 05/03/16 1240: Troponin I 2.56 *H, APTT 51 H Assessment/Plan Assessment: Ms. Puente is a pleasant 89 year old female with PMH HTN, HLD, asthma, osteoporosis and basal cell carcinoma s/p excision who presents with chief complaint of difficulty breathing. Patient noted sudden onset shortness of breaht this afternoon, followed by non-productive cough, dizziness with each episode of cough and non-radiating chest heaviness not relieved with nitroglycerin. 1. Acute asthma exacerbation Diffuse wheezing appreciated on presentation to ED and patient responded well to 125 IV solumedrol. Unlikely infectious in nature as she is afebrile without leukocytosis and no infiltrate seen on imaging. Prior PFTs on 07/03/11 showed mild obstructive lung disease primarily of the small airways. Currently satting well on RA * Continue IV solumedrol 40 mg Q12, consider switching to PO today * Spiriva 1 puf daily * Incentive spirometer and TRC nebs as needed * Oxygen support to maintain O2 sat > 92% * Check TFTs - TSH 0.189, T4 normal 2. NSTEMI Chest discomfort and dyspnea are most likely 2/2 NSTEMI consistent with the elevated troponin. However, PE should be included in the ddx and excluded with appropriate workup. OC risk score is 4 pts, equivalent to 20% risk all cause mortality. * Serial troponins and EKGs: 0.32 -> 2.59 -> 2.48 -> 3.65 -> 3.58 -> 3.07 * Cont heparin drip until today * Cont Plavix 75mg daily and Aspirin 325mg daily * Decrease NGT to 0.4mg 12 hours a day * Follow TTE - Normal EF of 70% with moderate posterior wall hypokinesis and impaired LV relaxation. Trace tricuspid regurgitation. * Appreciate cardio recs * Oxygen support * Resumed home med Lopressor at a decreased dose of 12.5mg PO daily 3. HTN, HLD * Vital per protocol * Continue lisinopril 10 mg PO daily * Cont atorvastatin 40 mg PO daily # Heart healthy # Mild pain pathway # DVTP: Heparin gtt # Full code Problem List: 1. Asthma with acute exacerbation in adult 2. Bronchitis 3. Asthma 4. Chest heaviness 5. Elevated troponin 6. HTN (hypertension) 7. HLD (hyperlipidemia) 8. Osteoporosis 9. Non-STEMI (non-ST elevated myocardial infarction) Pain Ratin Pain Location: 0 Pain Goal: Remain pain free Pain Plan: Mild pathway Tomorrow's Labs & Rationales: CBC BEP
--- NOTE | 2016-05-04 07:56 | NUR ---
PHYSICAL THERAPY. Pt AMB I IN ROOM. Pt HAS NO MOBILITY CONCERNS. Pt FROM [facility] AND HAS NO STAIRS. Pt AT BASELINE, NO SKILLED PT REQUIRED. PT WILL NOT FOLLOW.
[2016-05-04 08:03] LABS: ABSOLUTE BASOPHIL COUNT 0 /CUMM (0.0-0.2); ABSOLUTE EOSINOPHIL COUNT 0 /CUMM (0.0-0.7); ABSOLUTE LYMPH COUNT 0.6 /CUMM (1.2-3.4); ABSOLUTE MONOCYTE COUNT 0.3 /CUMM (0.10-0.60); BASOPHIL % 0.1 % (0.0-2.0); EOSINOPHIL % 0 % (0-5); GRANULOCYTE % 92.3 % (42.2-75.2); HEMATOCRIT 32.5 % (37-47); MEAN CORPUSCULAR HGB 29.4 PG (27.0-31.0); MEAN CORPUSCULAR HGB CONC 32.8 G/DL (33.0-37.0); MEAN CORPUSCULAR VOLUME 89.6 FL (81.0-99.0); MEAN PLATELET VOLUME 7.9 FL (7.4-10.4); PLATELET COUNT 245 /CUMM (130-400); RBC DISTRIBUTION WIDTH 14.9 % (11.5-14.5); RED BLOOD CELL CT 3.63 /CUMM (4.20-5.40)
--- NOTE | 2016-05-04 08:22 | Patient Discharge Instructions ---
Discharge Instructions General Discharge Information You were seen/treated for: Acute coronary syndrome Special Instructions: Please follow up with your cadiologist Dr. Al and primary care physician within 1 week of discharge. Diet Continue normal diet: Yes Recommended Diet: Heart Healthy Activity Full Activity/No Limits: Yes (as tolerated) Acute Coronary Syndrome Inclusion Criteria At DC or during hospital stay patient has or had the following: ACS DIAGNOSIS Yes Discharge Core Measures Meds if any: Prescribed or Continued at Discharge KERRY/ARB if EF <40% Yes Aspirin Yes Beta-Katelyn Yes Statin Yes Meds if any: NOT Prescribed or Continued at Discharge Congestive Heart Failure Inclusion Criteria At DC or during hospital stay patient has or had the following: CHF DIAGNOSIS No Discharge Core Measures Meds if any: Prescribed or Continued at Discharge Meds if any: NOT Prescribed or Continued at Discharge Cerebrovascular accident Inclusion Criteria At DC or during hospital stay patient has or had the following: CVA/TIA Diagnosis No Discharge Core Measures Meds if any: Prescribed or Continued at Discharge Meds if any: NOT Prescribed or Continued at Discharge Venous thromboembolism Inclusion Criteria VTE Diagnosis No VTE Type NONE VTE Confirmed by (Test) NONE Discharge Core Measures - Per Current guidelines, there needs to be overlap - treatment for the first 5 days of Warfarin therapy. - If discharged on Warfarin prior to 5 days of - overlap therapy, the patient will need to be - assessed for post discharge needs including - *Post discharge parental anticoagulation - *Warfarin and/or parental anticoagulation education - *Follow up date to check INR post discharge At least 5 days overlap therapy as Inpatient No Meds if any: Prescribed or Continued at Discharge Note: Overlap Therapy is Warfarin and Anticoagulant Meds if any: NOT Prescribed or Continued at Discharge
[2016-05-04 08:33] VITALS: BP 150/75
[2016-05-04 15:28] LABS: PTT 54 SEC (25-37)
[2016-05-04 16:32] VITALS: BP 141/63
--- NOTE | 2016-05-04 18:19 | PN- Cardiology ---
Subjective Subjective: * No chest discomfort, shortness of breath, lightheadedness or palpitations. * sinus rhythm Objective Vital Signs and I&Os Vital Signs Date Time Temp Pulse Resp B/P Pulse O2 O2 Flow FiO2 Ox Delivery Rate 05/04 1632 98.3 75 16 141/63 94 Room Air 05/04 1600 96 Room Air 05/04 0947 94 150/75 05/04 0947 94 150/75 05/04 0833 98.5 94 16 150/75 96 Room Air 05/04 0800 Room Air 05/04 0741 97 Room Air Room Air 05/04 0211 87 106/50 05/04 0000 97 05/03 2321 98.1 87 20 106/50 95 Room Air Intake & Output 05/04 1600 05/04 0800 05/04 0000 05/03 1600 05/03 0800 05/03 0000 Intake Total 718 588 480 168 355 Output Total Balance 718 588 480 168 355 Intake, IV 118 108 118 115 Intake, Oral 600 480 480 50 240 Physical Exam: General: WD/ WN female in NAD; alert and oriented with decreased memory Neck: no JVD, no carotid bruit Heart: RRR with 2/6 systolic murmur Lungs: clear bilaterally Extremities: no edema Assessment/Plan Assessment/Plan * This patient had noted recurrent episodes of chest heaviness along with shortness of breath which she attributed to her cough. At the present time she denies any symptoms but may be an unreliable historian. Her symptoms and rise in cardiac enzymes are consistent with myocardial ischemia and NSTEMI. In consideration of her age, comorbidities and absence of chest pain which current drug management will we continue medical therapy. * Stop IV heparin and continue aspirin 162mg daily and Plavix 75mg daily * Continue her NTG patch at 0.4mg/hr for 12 hours daily. Continue Atorvastatin 40mg daily. * Begin a small dose of Metoprolol at 12.5mg BID. * Patient may be discharged to home with follow up in the office in one week tomorrow. Continue telemetry? No
[2016-05-04 22:30] VITALS: BP 112/78
[2016-05-05 08:08] VITALS: BP 130/60
--- NOTE | 2016-05-05 08:18 | PN- Housestaff ---
SUNI DORANTES,KYLE 05/05/16 0818: Subjective Follow-up For: NSTEMI Asthma exacerbation Complaints: no complaints Tele-Events Since Last Visit: Normal sinus rhythm, heart rate between 65-86, PAC, no any overnight events Subjective: Patient is seen and examined at the bedside. She was not having any active complaints. Denies of any shortness of breath, chest pain, dizziness. Review of Systems Constitutional: Denies: no symptoms. Comments: Patient denies of any active complaints Objective Last 24 Hrs of Vital Signs/I&O Vital Signs Date Time Temp Pulse Resp B/P Pulse O2 O2 Flow FiO2 Ox Delivery Rate 05/05 0902 78 130/60 05/05 0902 78 130/60 05/05 0808 98.2 78 16 130/60 95 Room Air 05/05 0802 95 Room Air 05/05 0800 Room Air 05/05 0000 Room Air 05/04 2230 97.8 75 20 112/78 95 Room Air 05/04 2054 82 Intake & Output 05/05 1600 05/05 0800 05/05 0000 Intake Total 491 70 490 Output Total Balance 491 70 490 Intake, IV 11 20 10 Intake, Oral 480 50 480 Physical Exam General Appearance: Alert, Oriented X3, Cooperative Cardiovascular: Normal S1, Normal S2 Lungs: bilateral occasional wheezing Abdomen: Soft, No Tenderness Extremities: No Clubbing, No Cyanosis, No Edema Assessment/Plan Assessment: Ms. Puente is a pleasant 89 year old female with PMH HTN, HLD, asthma, osteoporosis and basal cell carcinoma s/p excision who presents with chief complaint of difficulty breathing. Patient noted sudden onset shortness of breaht this afternoon, followed by non-productive cough, dizziness with each episode of cough and non-radiating chest heaviness not relieved with nitroglycerin. Plan - Discharge today 1. Acute asthma exacerbation Diffuse wheezing appreciated on presentation to ED and patient responded well to 125 IV solumedrol. Unlikely infectious in nature as she is afebrile without leukocytosis and no infiltrate seen on imaging. Prior PFTs on 07/03/11 showed mild obstructive lung disease primarily of the small airways. * Spiriva 1 puf daily * Tablet prednisone 10 milligrams for 3 days * Incentive spirometer and TRC nebs as needed * Oxygen support to maintain O2 sat > 92% 2. NSTEMI Chest discomfort and dyspnea are most likely 2/2 NSTEMI consistent with the elevated troponin. However, PE should be included in the ddx and excluded with appropriate workup. OC risk score is 4 pts, equivalent to 20% risk all cause mortality. * Cont Plavix 75mg daily and Aspirin 325mg daily * We will continue tablet Lopressor 12.5mg PO daily 3. HTN, HLD * Continue lisinopril 10 mg PO daily * Cont atorvastatin 40 mg PO daily Diet -heart healthy diet CODE STATUS-full code Problem List: 1. Non-STEMI (non-ST elevated myocardial infarction) 2. Osteoporosis 3. HLD (hyperlipidemia) 4. HTN (hypertension) 5. Elevated troponin 6. Asthma with acute exacerbation in adult Pain Ratin Pain Location: Not applicable Pain Goal: Remain pain free Pain Plan: Mild Tomorrow's Labs & Rationales: Not required as patient is discharged today DVT/Prophylaxis: early ambulation low risk OSCAR DORANTES,[facility] 05/05/16 1406: Objective Last 24 Hrs of Vital Signs/I&O Vital Signs Date Time Temp Pulse Resp B/P Pulse O2 O2 Flow FiO2 Ox Delivery Rate 05/05 0902 78 130/60 05/05 0902 78 130/60 05/05 0808 98.2 78 16 130/60 95 Room Air 05/05 0802 95 Room Air 05/05 0800 Room Air 05/05 0000 Room Air 05/04 2230 97.8 75 20 112/78 95 Room Air 05/04 2054 82 05/04 1632 98.3 75 16 141/63 94 Room Air 05/04 1600 96 Room Air Room Air 05/04 1600 96 Room Air Intake & Output 05/05 1600 05/05 0800 05/05 0000 Intake Total 491 70 490 Output Total Balance 491 70 490 Intake, IV 11 20 10 Intake, Oral 480 50 480 Attending MD Review Statement Attending Statement Attending MD Statement: examined this patient, discuss w/resident/PA/FILM PRINTER, agreed w/resident/PA/FILM PRINTER, discussed with family, reviewed EMR data (avail), discussed with nursing, discussed with case mgmt, reviewed images, amended to note Attending Assessment/Plan: Doing much better No chest pain No other significant symptoms Agree with above data Vital signs otherwise stable Chest clear Impression acute coronary syndrome improving on maximum medical therapy Mild asthma with recent exacerbation Hypertension Hyperlipidemia Plan patient seems to be improving Continue inhalers Patient can be discharged home
[2016-05-05 08:26] LABS: ABSOLUTE BASOPHIL COUNT 0 /CUMM (0.0-0.2); ABSOLUTE EOSINOPHIL COUNT 0 /CUMM (0.0-0.7); ABSOLUTE GRANULOCYTE CT 9.8 /CUMM (1.4-6.5); ABSOLUTE LYMPH COUNT 0.6 /CUMM (1.2-3.4); ABSOLUTE MONOCYTE COUNT 0.4 /CUMM (0.10-0.60); BASOPHIL % 0 % (0.0-2.0); EOSINOPHIL % 0 % (0-5); GRANULOCYTE % 90.5 % (42.2-75.2); HEMATOCRIT 32.3 % (37-47); MEAN CORPUSCULAR HGB 29.4 PG (27.0-31.0); MEAN CORPUSCULAR HGB CONC 32.9 G/DL (33.0-37.0); MEAN CORPUSCULAR VOLUME 89.3 FL (81.0-99.0); PLATELET COUNT 241 /CUMM (130-400); RBC DISTRIBUTION WIDTH 14.7 % (11.5-14.5); RED BLOOD CELL CT 3.61 /CUMM (4.20-5.40); WHITE BLOOD CELL COUNT 10.8 /CUMM (4.8-10.8)
[2016-05-05 09:02] VITALS: BP 130/60
[2016-05-05] MEDS ORDERED: PREDNISONE10 M2 PO (12:31)
[2016-05-05] MEDS ORDERED: ASPIRIN EC81 M1 PO ×2 (13:15→14:34)
[2016-05-05] MEDS ORDERED: METOPROLOL TART25 M1 PO ×2 (13:15→14:34)
[2016-05-05] MEDS ORDERED: PLAVIX75 M1 PO ×2 (13:15→14:34)
[2016-05-05] MEDS ORDERED: NITROGLYCERIN1 EACH TOP ×2 (13:16→14:34)
--- NOTE | 2016-05-05 13:42 | PN- Cardiology ---
Subjective Subjective: The patient reports that she is feeling well. No chest pain. No shortness of breath. No palpitations. No diaphoresis. No nausea or vomiting. No lightheadedness or dizziness. Objective Vital Signs and I&Os Vital Signs Date Time Temp Pulse Resp B/P Pulse O2 O2 Flow FiO2 Ox Delivery Rate 05/05 0902 78 130/60 05/05 0902 78 130/60 05/05 0808 98.2 78 16 130/60 95 Room Air 05/05 0802 95 Room Air 05/05 0800 Room Air 05/05 0000 Room Air 05/04 2230 97.8 75 20 112/78 95 Room Air 05/04 2054 82 05/04 1632 98.3 75 16 141/63 94 Room Air 05/04 1600 96 Room Air Room Air 05/04 1600 96 Room Air Intake & Output 05/05 1600 05/05 0800 05/05 0000 05/04 1600 05/04 0800 05/04 0000 Intake Total 491 70 490 718 588 480 Output Total Balance 491 70 490 718 588 480 Intake, IV 11 20 10 118 108 Intake, Oral 480 50 480 600 480 480 Physical Exam: Gen: NAD HEENT: normal Lungs: clear to auscultation, normal resp. effort Heart: RRR, S1, S2, 2/6 systolic murmur Abdomen: Soft, nontender, no masses Extremities: No clubbing, cyanosis, or edema. Neuro: Alert and oriented x 3, cranial nerves intact Current Medications: Current Medications Sig/Rayna Start time Last Medication Dose Route Stop Time Status Admin Acetaminophen 650 MG .STK-MED ONE 05/04 1413 DC PO 05/04 1414 Acetaminophen 650 MG Q6P PRN 05/01 2330 AC 05/04 PO 1416 Albuterol Sulfate 3 ML EVERY 4 HRS/AWAKE 05/02 1200 AC 05/05 INH 1125 Aspirin Buffered 162 MG DAILY 05/05 1000 AC 05/05 PO 0902 Aspirin Buffered 325 MG DAILY 05/03 1000 DC 05/04 PO 0946 Atorvastatin Calcium 40 MG 1700 05/02 1700 AC 05/04 PO 1652 Clopidogrel Bisulfate 75 MG DAILY 05/02 1000 AC 05/05 PO 0902 Heparin Sodium 1,686 UNIT ONE ONE 05/04 1530 DC 05/04 (Porcine) IV 05/04 1531 1630 Heparin Sodium 25,000 UNIT Q24H 05/01 2230 DC 05/04 (Porcine) IV 1548 Sodium Chloride 500 ML Lisinopril 10 MG DAILY 05/02 1000 AC 05/05 PO 0902 Methylprednisolone 40 MG Q12 05/02 1000 AC 05/05 IV 0902 Metoprolol Tartrate 12.5 MG BID 05/04 0104 AC 05/05 PO 0902 Nitroglycerin 0.4 MG DAILY 05/04 0115 AC 05/05 TOP 0902 Omeprazole 20 MG DAILY AC 05/04 1605 AC 05/05 PO 0620 Tiotropium [place] 1 PUF DAILY 05/02 1000 AC 05/05 INH 0902 Results Last 48 Hrs of Labs/Mics: Laboratory Tests 05/05/16 0659: Anion Gap 8, Estimated GFR 52 L, BUN/Creatinine Ratio 30.0 H, Magnesium 2.3, CBC w Diff NO MAN DIFF REQ, RBC 3.61 L, MCV 89.3, MCH 29.4, RDW 14.7 H, MPV 8.0, Gran % 90.5 H, Lymphocytes % 5.9 L, Monocytes % 3.6, Eosinophils % 0, Basophils % 0 L, Absolute Granulocytes 9.8 H, Absolute Lymphocytes 0.6 L, Absolute Monocytes 0.4, Absolute Eosinophils 0, Absolute Basophils 0, PUBS MCHC 32.9 L 05/04/16 2130: APTT Cancelled 05/04/16 1231: APTT 54 H 05/04/16 0630: Anion Gap 8, Estimated GFR 59 L, BUN/Creatinine Ratio 30.0 H, Magnesium 2.4 H , CBC w Diff NO MAN DIFF REQ, RBC 3.63 L, MCV 89.6, MCH 29.4, RDW 14.9 H, MPV 7.9, Gran % 92.3 H, Lymphocytes % 4.9 L, Monocytes % 2.7, Eosinophils % 0, Basophils % 0.1, Absolute Granulocytes 12.0 H, Absolute Lymphocytes 0.6 L, Absolute Monocytes 0.3, Absolute Eosinophils 0, Absolute Basophils 0, PUBS MCHC 32.8 L 05/04/16 0415: APTT 109 *H 05/03/16 2045: APTT 60 H Assessment/Plan Assessment/Plan Assessment: 1. Acute asthma exacerbation 2. Positive troponin, likely non-ST elevation [place]. Treated medically. 3. Hypertension, controlled 4. Hyperlipidemia Plan: * Continue current cardiac medications. * Follow up with Dr. Al in 1 week after discharge * The patient is advised to call with any plan of chest discomfort shortness of breath, or other cardiac symptoms. Continue telemetry? Yes
--- NOTE | 2016-05-10 15:53 | Discharge Summary ---
Visit Information Visit Dates Admission Date: 05/01/16 Discharge Date: 05/05/16 Hospital Course Course Attending Physician: KRISTIN FISHER MD Primary Care Physician: KRISTIN FISHER MD Consulting Request: Consulting Specialty: Cardiology Consulting Physician: Dr Bj Al Reason for Consult: NSTEMI Hospital Course: Mrs. Puente was admitted to the telemetry service. Per minute myocardial disease was documented by serial troponin and EKG. And echocardiogram was obtained which showed mild hypokinesia of the posterior myocardium and diastolic disease. Her LVEF was preserved at 70%. She was seen in consultation by Steve Al MD of the cardiology service. Her statin dose was increased at his suggestion and she was given an initial dose of clopidogrel. Topical nitrates and aspirin were started. Her other cardiac meds were maintained. She was treated for an acute exacerbation of her asthma with intravenous steroids and nebulizer treatments. Beta blockade was instituted after 2 days secondary to the patient's asthma. This medication was tolerated well. Her cardiovascular status remained stable throughout her hospitalization and on May 05 the patient was able to be discharged to home. Complications: None Allergies: Coded Allergies: NO KNOWN ALLERGIES (04/11/11) Significant Procedures: CTA notable for findings of extension of the thyroid into the mediastinum and nodular consistency Disposition Summary Disposition Principal Diagnosis: NSTEMI Additional Diagnosis: Acute exacerbation of asthma Nontoxic nodular thyroid Discharge Disposition: home health services Discharge Instructions General Discharge Information Code Status: Full Code Patient's Diet: Fat and salt restricted as tolerated Patient's Activity: Self-limited Follow-Up Instructions/Appts: Patient to be scheduled within 14 days for a transition of care visit. Patient also follow-up with Dr. Al. Medications at Discharge Discharge Medications: Stop taking the following medications: Amoxicillin (Amoxicillin) 875 MG TABLET ORAL TWICE DAILY Qty = 20 Continue taking these medications: Albuterol Sulfate (Albuterol Sulfate) 2.5 MG/3 ML (0.083 %) VIAL.NEB 1 Vial Inhale Solution EVERY 4 HOURS NEEDED as needed for wheezing Qty = 50 Comments: Last Taken: 05/05/16 Time: 11AM Benzonatate (Tessalon Perle) 100 MG CAPSULE 1 Capsule ORAL THREE TIMES DAILY Qty = 21 Comments: NOT GIVEN IN HOSPITAL [Nebulizer machine] Qty = 1 Atorvastatin Calcium (Lipitor) 40 MG TABLET 1 Tablet ORAL DAILY Comments: Last Taken: 05/04/16 Time: 5PM Lisinopril (Lisinopril) 10 MG TABLET 1 Tablet ORAL DAILY Comments: Last Taken: 05/05/16 Time: 9AM Tiotropium [place] (Spiriva) 18 MCG CAP.W.DEV 1 Capsule Inhale through mouth DAILY Comments: Last Taken: 05/05/16 Time: 9AM Calcium Carbonate/Vitamin D3 (Caltrate 600 + D Tablet) 600 MG-800 TABLET 2 Tablet ORAL DAILY Comments: NOT GIVEN IN HOSPITAL Gluc/James-MSM#1/C/Delgado/Alexey/Bor (Osteo Bi-Flex Caplet) 750 MG-644 MG-30 MG-1 MG- 1.5 MG TABLET 2 Tablet ORAL DAILY Comments: NOT GIVEN IN HOSPITAL Multivit-Min/FA/Lycopen/Lutein (Centrum Silver Tablet) 0.4 MG-300 MCG-250 MCG TABLET 1 Tablet ORAL DAILY Comments: NOT GIVEN IN HOSPITAL Albuterol Sulfate (Proair Hfa) 90 MCG HFA.AER.AD 2 Puff Inhale through mouth EVERY 4-6 HOURS NEEDED as needed for ASTHMA Comments: NOT GIVEN IN HOSPITAL Alendronate Sodium (Fosamax) 70 MG TABLET 1 Tablet ORAL Once a Week Instructions: in the morning, at least 30 minutes before the first food, beverage, or medication of the day Comments: NOT GIVEN IN HOSPITAL Start taking the following new medications: Clopidogrel Bisulfate (Plavix) 75 MG TABLET 75 Milligram ORAL DAILY Qty = 31 No Refills Comments: Last Taken: 05/05/16 Time: 9AM Aspirin (Ecotrin*) 81 MG TABLET.DR 162 Milligram ORAL DAILY Qty = 90 No Refills Comments: Last Taken: 05/05/16 Time: 9AM Metoprolol Tartrate (Metoprolol Tartrate) 25 MG TABLET 12.5 Milligram ORAL TWICE DAILY Qty = 31 No Refills Comments: Last Taken: 05/05/16 Time: 9AM Nitroglycerin (Nitroglycerin Patch) 0.4 MG/HOUR PATCH.TD24 0.4 Milligram On the skin TWICE DAILY Qty = 31 No Refills Comments: Last Taken: 05/05/16 Time: 9AM The following medications have been changed: Old: Prednisone (Prednisone) 20 MG TABLET 1 Tablet ORAL TWICE DAILY Qty = 10 New: Prednisone (Prednisone) 10 MG TABLET 1 Tablet ORAL DAILY Qty = 3 Comments: Last Taken: 05/05/16 Time: 9AM PT GIVEN SOLUMEDROL IV Copies To: LYNDA DORANTES,Gissell TRONCOSO; NAVJOT DORANTES PhD,STEVE Golden
== END 2016-05-05 13:47 | DRG 281 ==
LOC: ENRESERVTM → ENRESERVDT → ERH 20:58 → 1NO 22:18 → ERHI 22:18 → ENPENDDIS 22:18 → 1NO 05-02 03:00
PROVIDERS: Internal Medicine; Physician Assistant Medical; Student in an Organized Health Care Education/Training Program; ADMIT Internal Medicine
DX: I21.4 Non-ST elevation (NSTEMI) myocardial infarction (principal); J45.901 Unspecified asthma with (acute) exacerbation; I10 Essential (primary) hypertension; M81.0 Age-related osteoporosis without current pathological fracture; Z85.828 Personal history of other malignant neoplasm of skin; Z87.891 Personal history of nicotine dependence
CPT/HCPCS: 1NSP; ERO; 36415; 82436; 93005; 93010; 93306; 93970; 96374; 96375; 99291; J1644; J2920; J2930; J3490; Q9965